=== PATIENT | male | born 1950 | race Caucasian/White ===

== ENCOUNTER → 2016-11-15 | Outpatient (CLI) | payer MEDICARE, OTHER ==
[2016-11-15 12:08] LABS: MEAN CORPUSCULAR HEMOGLOBIN 27.7 pg (27.0-33.0); MEAN CORPUSCULAR HGB CONC 31.2 g/dl (32.0-36.5); MEAN CORPUSCULAR VOLUME 88.8 fl (80.0-96.0); RED CELL DISTRIBUTION WIDTH 15.2 % (11.5-14.5)
== END ==
LOC: M SMT 09:17
PROVIDERS: ATTEND Physician Assistant
DX: I48.3 Typical atrial flutter (principal); Z51.81 Encounter for therapeutic drug level monitoring; Z79.01 Long term (current) use of anticoagulants

== ENCOUNTER → 2016-11-15 | Outpatient (CLI) | payer MEDICARE, OTHER ==
[2016-11-15 12:31] LABS: CALCIUM LEVEL 9.5 MG/DL (8.8-10.2); CREATININE FOR GFR 1.29 MG/DL (0.70-1.30); FREE T4 1.58 NG/DL (0.76-1.46); GLOMERULAR FILTRATION RATE 59.1 (>49); POTASSIUM SERUM 4.8 MEQ/L (3.5-5.1)
== END ==
LOC: M SMT 09:14
PROVIDERS: ATTEND Physician Assistant Medical
DX: E11.40 Type 2 diabetes mellitus with diabetic neuropathy, unspecified (principal); E03.9 Hypothyroidism, unspecified; E78.2 Mixed hyperlipidemia; I48.3 Typical atrial flutter; Z51.81 Encounter for therapeutic drug level monitoring; Z79.01 Long term (current) use of anticoagulants

== ENCOUNTER 2017-04-27 13:21 | Emergency (ER) | payer MEDICARE, OTHER ==
[~2017-04-27] VITALS: Ht 177.8 cm; Wt 96.8 kg
[2017-04-27] MEDS ORDERED: METF500T4 (13:38)
[2017-04-27] MEDS ORDERED: SPIR1CAP (13:38)
[2017-04-27] MEDS ORDERED: FURO40TA2 (13:38)
[2017-04-27] MEDS ORDERED: ASPI81TA85 PO (13:38)
[2017-04-27] MEDS ORDERED: ADVA115A (13:38)
[2017-04-27] MEDS ORDERED: DIGO0.25 (13:38)
[2017-04-27] MEDS ORDERED: VITA1CAP40 (13:38)
[2017-04-27] MEDS ORDERED: LEVO175T2 (13:38)
[2017-04-27] MEDS ORDERED: NITR4TASL (13:38)
[2017-04-27] MEDS ORDERED: GABA-282 (13:38)
[2017-04-27] MEDS ORDERED: ALTA1CAP4 PO (13:38)
[2017-04-27] MEDS ORDERED: ELIQ5TAB (13:38)
[2017-04-27] MEDS ORDERED: ATEN100T (13:38)
[2017-04-27] MEDS ORDERED: oxygen (13:40)
[2017-04-27] MEDS ORDERED: CO Q100C10 PO (13:40)
[2017-04-27] MEDS ORDERED: VITATAB11 PO (13:40)
[2017-04-27] MEDS ORDERED: NS 500 ML IV ONE (15:00)
[2017-04-27 15:01] LABS: BASO % 0.4 % (0.0-1.0); EOS # 0.1 K/mm3 (0.0-0.50); EOS % 1.3 % (0.0-3.0); LARGE UNSTAINED CELL # 0.1 K/mm3 (0.0-0.4); LARGE UNSTAINED CELL % 1.2 % (0.0-4.0); LYMPH # 1.6 K/mm3 (1.5-4.5); LYMPH % 16.1 % (24.0-44.0); MEAN CORPUSCULAR HEMOGLOBIN 30.4 pg (27.0-33.0); MEAN CORPUSCULAR HGB CONC 34.2 g/dl (32.0-36.5); MONO # 0.5 K/mm3 (0.0-0.8); NEUTROPHILS # 6.9 K/mm3 (1.8-7.7); PLATELET COUNT, AUTOMATED 219 k/mm3 (150-450)
[2017-04-27 15:14] LABS: CALCIUM LEVEL 9.3 MG/DL (8.8-10.2); CREATININE FOR GFR 1.4 MG/DL (0.70-1.30); GLOMERULAR FILTRATION RATE 53.8 (>49); POTASSIUM SERUM 4.6 MEQ/L (3.5-5.1)
[2017-04-27] MEDS ORDERED: HumuLIN R (REGULAR) INSULIN (NovoLIN R) **100U/ML** PER UNIT IV ONE (15:30)
[2017-04-27 16:44] VITALS: BP 112/56
[2017-04-27 17:16] LABS: ALBUMIN 3.6 GM/DL (3.2-5.2); ALBUMIN/GLOBULIN RATIO 0.92 (1.00-1.93); BILIRUBIN,DIRECT 0.2 MG/DL (0.0-0.2); BILIRUBIN,TOTAL 1.3 MG/DL (0.2-1.0); TOTAL PROTEIN 7.5 GM/DL (6.4-8.2)
== END 2017-04-27 17:17 | disposition home or self-care (01) ==
LOC: M ED 13:21
DX: R73.9 Hyperglycemia, unspecified (principal); R73.03 Prediabetes; I13.10 Hypertensive heart and chronic kidney disease without heart failure, with stage 1 through stage 4 chronic kidney disease, or unspecified chronic kidney disease; N18.9 Chronic kidney disease, unspecified; J44.9 Chronic obstructive pulmonary disease, unspecified; I25.2 Old myocardial infarction; I35.9 Nonrheumatic aortic valve disorder, unspecified; Z87.891 Personal history of nicotine dependence; Z99.81 Dependence on supplemental oxygen; Z79.899 Other long term (current) drug therapy; Z79.84 Long term (current) use of oral hypoglycemic drugs; Z79.01 Long term (current) use of anticoagulants; Z79.82 Long term (current) use of aspirin

== ENCOUNTER → 2017-05-09 | Outpatient (REF) | payer MEDICARE, OTHER ==
[~2017-05-09] MED LIST: ADVA115A; ALTA1CAP4 PO; ASPI81TA85 PO; ATEN100T; CO Q100C10 PO; DIGO0.25; ELIQ5TAB; FURO40TA2; GABA-282; LEVO175T2; METF500T4; NITR4TASL; SPIR1CAP; VITA1CAP40; VITATAB11 PO; oxygen
[2017-05-09 13:20] LABS: ANION GAP 8 MEQ/L (8-16); BLOOD UREA NITROGEN 21 MG/DL (7-18); CALCIUM LEVEL 9.6 MG/DL (8.8-10.2); CARBON DIOXIDE LEVEL 33 MEQ/L (21-32); CHLORIDE LEVEL 100 MEQ/L (98-107); CHOLESTEROL LEVEL 181 MG/DL (<200); CREATININE FOR GFR 1.13 MG/DL (0.70-1.30); FREE T4 1.45 NG/DL (0.76-1.46); GLOMERULAR FILTRATION RATE > 60.0 (>49); GLUCOSE, FASTING 259 MG/DL (80-110); POTASSIUM SERUM 4.2 MEQ/L (3.5-5.1); SODIUM LEVEL 141 MEQ/L (136-145); TRIGLYCERIDES LEVEL 327 MG/DL (<150)
== END ==
LOC: M LABDRWAD 12:05
PROVIDERS: ATTEND Physician Assistant Medical
DX: E03.8 Other specified hypothyroidism (principal); E78.2 Mixed hyperlipidemia; E11.40 Type 2 diabetes mellitus with diabetic neuropathy, unspecified

== ENCOUNTER → 2017-05-12 | Outpatient (REF) | payer MEDICARE, OTHER | LOC: M LABDRAW1 13:55 → M LABDRWAD 13:55 | PROVIDERS: ATTEND Physician Assistant Medical | DX: E11.40 Type 2 diabetes mellitus with diabetic neuropathy, unspecified (principal); E03.8 Other specified hypothyroidism; E55.9 Vitamin D deficiency, unspecified; E78.2 Mixed hyperlipidemia ==

== ENCOUNTER → 2017-07-08 | Outpatient (REF) | payer MEDICARE, OTHER ==
[2017-07-08 13:30] LABS: ANION GAP 9 MEQ/L (8-16); BLOOD UREA NITROGEN 21 MG/DL (7-18); CALCIUM LEVEL 8.6 MG/DL (8.8-10.2); CARBON DIOXIDE LEVEL 31 MEQ/L (21-32); CHLORIDE LEVEL 105 MEQ/L (98-107); CREATININE FOR GFR 1.09 MG/DL (0.70-1.30); GLOMERULAR FILTRATION RATE > 60.0 (>49); GLUCOSE, FASTING 135 MG/DL (80-110); POTASSIUM SERUM 4.3 MEQ/L (3.5-5.1); SODIUM LEVEL 145 MEQ/L (136-145)
== END ==
LOC: M LABSMT 12:30
PROVIDERS: ATTEND Physician Assistant Medical
DX: E11.65 Type 2 diabetes mellitus with hyperglycemia (principal)

== ENCOUNTER → 2017-10-08 | Outpatient (REF) | payer OTHER ==
[2017-10-08 13:30] LABS: ANION GAP 7 MEQ/L (8-16); BLOOD UREA NITROGEN 21 MG/DL (7-18); CALCIUM LEVEL 8.8 MG/DL (8.8-10.2); CARBON DIOXIDE LEVEL 34 MEQ/L (21-32); CHLORIDE LEVEL 103 MEQ/L (98-107); CHOLESTEROL LEVEL 155 MG/DL (<200); CREATININE FOR GFR 0.96 MG/DL (0.70-1.30); FREE T4 1.41 NG/DL (0.76-1.46); GLOMERULAR FILTRATION RATE > 60.0 (>49); GLUCOSE, FASTING 133 MG/DL (80-110); POTASSIUM SERUM 4.2 MEQ/L (3.5-5.1); SODIUM LEVEL 144 MEQ/L (136-145); TRIGLYCERIDES LEVEL 197 MG/DL (<150)
== END ==
LOC: M LABDRWAD 12:13 → M LAB REF 12:13
PROVIDERS: ATTEND Physician Assistant Medical
DX: Z00.00 Encounter for general adult medical examination without abnormal findings (principal); E11.65 Type 2 diabetes mellitus with hyperglycemia; E03.9 Hypothyroidism, unspecified

== ENCOUNTER → 2017-12-16 | Outpatient (REF) | payer OTHER ==
[2017-12-16 21:03] LABS: FREE T4 1.23 NG/DL (0.76-1.46); THYROID STIMULATING HORMONE 0.275 uIU/ML (0.358-3.740)
== END ==
LOC: M LABDRWAD 19:33
DX: E03.8 Other specified hypothyroidism (principal)
CPT/HCPCS: 84443

== ENCOUNTER → 2018-01-15 | Outpatient (CLI) | payer MEDICARE, OTHER | LOC: M ADAMS 08:36 | DX: J44.9 Chronic obstructive pulmonary disease, unspecified (principal) | CPT/HCPCS: 71046 ==

== ENCOUNTER → 2018-03-31 | Outpatient (REF) | payer OTHER ==
[2018-03-31 13:20] LABS: ESTIMATED AVERAGE GLUCOSE 166 MG/DL (60-110); HEMOGLOBIN A1c 7.4 %
[2018-03-31 13:28] LABS: ANION GAP 9 MEQ/L (8-16); BLOOD UREA NITROGEN 23 MG/DL (7-18); CALCIUM LEVEL 9.2 MG/DL (8.8-10.2); CARBON DIOXIDE LEVEL 31 MEQ/L (21-32); CHLORIDE LEVEL 103 MEQ/L (98-107); CHOLESTEROL LEVEL 157 MG/DL (<200); CHOLESTEROL RISK RATIO 5.413 (<5); CREATININE FOR GFR 1.02 MG/DL (0.70-1.30); GLOMERULAR FILTRATION RATE > 60.0 (>49); GLUCOSE, FASTING 175 MG/DL (70-100); HDL CHOLESTEROL 29 MG/DL (>40); NON-HDL-C 128 MG/DL; POTASSIUM SERUM 4.2 MEQ/L (3.5-5.1); SODIUM LEVEL 143 MEQ/L (136-145); THYROID STIMULATING HORMONE 0.339 uIU/ML (0.358-3.740); TRIGLYCERIDES LEVEL 240 MG/DL (<150)
[2018-03-31 14:02] LABS: CREATININE, URINE 24.4 MG/DL; MALB URINE SIEMENS 28.1 MG/L; MAU/CREAT RATIO 115.1 MCG/MG (0.0-30.0)
== END ==
LOC: M LABDRWAD 12:38
DX: E11.65 Type 2 diabetes mellitus with hyperglycemia (principal); E03.8 Other specified hypothyroidism; E78.2 Mixed hyperlipidemia

== ENCOUNTER → 2018-07-08 | Outpatient (REF) | payer OTHER ==
[2018-07-08 14:07] LABS: FREE T4 1.09 NG/DL (0.76-1.46)
== END ==
LOC: M LABDRWAD 12:35
DX: E03.8 Other specified hypothyroidism (principal)

== ENCOUNTER → 2019-03-22 | Outpatient (REF) | payer MEDICARE, OTHER ==
[~2019-03-22] MED LIST changes: -GABA-282; +GABA-843; -VITA1CAP40; +VITA50005
[2019-03-22 13:28] LABS: ALBUMIN 3.4 GM/DL (3.2-5.2); ALT/SGPT 36 U/L (12-78); BILIRUBIN,TOTAL 1.2 MG/DL (0.2-1.0); BLOOD UREA NITROGEN 20 MG/DL (7-18); CALCIUM LEVEL 8.8 MG/DL (8.8-10.2); CARBON DIOXIDE LEVEL 33 MEQ/L (21-32); CHLORIDE LEVEL 102 MEQ/L (98-107); CHOLESTEROL LEVEL 200 MG/DL (<200); CHOLESTEROL RISK RATIO 6.451 (<5); CREATININE FOR GFR 1.01 MG/DL (0.70-1.30); GLOMERULAR FILTRATION RATE > 60.0 (>49); GLUCOSE, FASTING 170 MG/DL (70-100); HDL CHOLESTEROL 31 MG/DL (>40); LDL CHOLESTEROL 131 MG/DL (<100); NON-HDL-C 169 MG/DL; SODIUM LEVEL 142 MEQ/L (136-145); TOTAL PROTEIN 7.1 GM/DL (6.4-8.2); TRIGLYCERIDES LEVEL 192 MG/DL (<150)
[2019-03-22 13:34] LABS: TOTAL 25(OH) VITAMIN D 38.7 NG/ML (30.0-100.0)
[2019-03-22 15:10] LABS: HEMOGLOBIN A1c 7.7 %
== END ==
LOC: M LABDRWAD 12:41
PROVIDERS: ATTEND Physician Assistant Medical
DX: E11.65 Type 2 diabetes mellitus with hyperglycemia (principal); I10 Essential (primary) hypertension; E55.9 Vitamin D deficiency, unspecified; E78.2 Mixed hyperlipidemia

== ENCOUNTER → 2019-06-24 | Outpatient (REF) | payer MEDICARE, OTHER ==
[~2019-06-24] MED LIST changes: +METF-791; -METF500T4
[2019-06-24 13:15] LABS: BLOOD UREA NITROGEN 26 MG/DL (7-18); CALCIUM LEVEL 10.1 MG/DL (8.8-10.2); CARBON DIOXIDE LEVEL 35 MEQ/L (21-32); CHLORIDE LEVEL 103 MEQ/L (98-107); CREATININE FOR GFR 1.03 MG/DL (0.70-1.30); GLOMERULAR FILTRATION RATE > 60.0 (>42); GLUCOSE, FASTING 130 MG/DL (70-100); POTASSIUM SERUM 4.2 MEQ/L (3.5-5.1); SODIUM LEVEL 143 MEQ/L (136-145); THYROID STIMULATING HORMONE 0.808 uIU/ML (0.358-3.740)
[2019-06-24 13:26] LABS: HEMOGLOBIN A1c 6.5 %
[2019-06-24 13:46] LABS: MALB URINE SIEMENS 65.4 MG/L; MAU/CREAT RATIO 52.3 MCG/MG (0.0-30.0)
== END ==
LOC: M LAB REF 12:15
PROVIDERS: ATTEND Physician Assistant Medical
DX: E11.65 Type 2 diabetes mellitus with hyperglycemia (principal); E03.8 Other specified hypothyroidism

== ENCOUNTER → 2019-10-09 | Outpatient (CLI) | payer MEDICARE, OTHER ==
--- NOTE | 2019-10-09 12:05 | REP ---
REASON: History of emphysema. COMPARISON: 01/15/2018, the latest prior with other older priors also reviewed. Since the latest prior examination bibasilar opacities have developed. The interstitial markings are generally increased when compared to the prior exam. There is cardiomegaly. There is thickening of the major fissure. There is no change in the osseous structures. IMPRESSION: Bibasilar findings and increased interstitial markings with cardiomegaly. I can not rule out the possibility of early interstitial edema superimposed upon chronic change with evidence to suggest bibasilar subsegmental atelectatic change and or even bibasilar pneumonia. This should be correlated clinically with appropriate followup. Electronically Signed by Maury Terry DO 10/09/2019 12:17 P
== END ==
LOC: M ADAMS 09:05
PROVIDERS: ATTEND Internal Medicine Pulmonary Disease
DX: R91.8 Other nonspecific abnormal finding of lung field (principal); J43.1 Panlobular emphysema; J96.11 Chronic respiratory failure with hypoxia

== ENCOUNTER 2020-03-09 16:34 | Inpatient (IN) | payer MEDICARE, OTHER ==
[~2020-03-09] VITALS: Ht 177.8 cm; Wt 98.5 kg
[~2020-03-09 16:34] MED LIST changes: -ADVA115A; +ADVA115A INH; -ATEN100T; +ATEN100T PO; -ELIQ5TAB; +ELIQ5TAB PO; -METF-791; +METF-838; -NITR4TASL; +NITR4TASL SL; -SPIR1CAP; +SPIR1CAP INH
[2020-03-09] MEDS ORDERED: FURO40TA2 PO ×3 (17:07→19:44)
[2020-03-09] MEDS ORDERED: METF10004 PO (17:07)
[2020-03-09] MEDS ORDERED: DIGO0.123 PO (17:07)
[2020-03-09] MEDS ORDERED: SITA50TAB PO (17:12)
[2020-03-09] MEDS ORDERED: LEVO137T2 PO (17:12)
[2020-03-09] MEDS ORDERED: ALBU83IN INH (17:12)
[2020-03-09] MEDS ORDERED: GABA600T4 PO (17:12)
[2020-03-09] MEDS ORDERED: ATOR80TA59 PO (17:12)
[2020-03-09] MEDS ORDERED: GABA-843 PO ×2 (17:12→19:41)
[2020-03-09 17:41] LABS: BASO # 0.1 10^3/uL (0.0-0.2); BASO % 0.8 % (0.0-1.0); EOS % 0.5 % (0.0-3.0); HEMATOCRIT 28.5 % (42.0-52.0); HEMOGLOBIN 7.6 g/dl (13.5-17.5); LYMPH # 0.7 10^3/uL (1.5-5.0); LYMPH % 8.7 % (24.0-44.0); MEAN CORPUSCULAR HEMOGLOBIN 19.6 pg (27.0-33.0); MEAN CORPUSCULAR HGB CONC 26.7 g/dl (32.0-36.5); MEAN CORPUSCULAR VOLUME 73.5 fl (80.0-96.0); NEUTROPHILS # 6.2 10^3/uL (1.5-8.5); NEUTROPHILS % 77.6 % (36.0-66.0); PLATELET COUNT, AUTOMATED 394 10^3/uL (150-450); RED BLOOD COUNT 3.88 10^6/uL (4.30-6.10); WHITE BLOOD COUNT 7.9 10^3/uL (4.0-10.0)
--- NOTE | 2020-03-09 17:59 | REP ---
REASON FOR EXAM: Cough and dyspnea. COMPARISON: Multiple, the latest 09/04/2016. The technique utilized in obtaining the radiograph has magnified the cardiac silhouette and accentuated the interstitial markings. There are bibasilar opacities which have increased from the prior exam, more so on the right than left where a small pleural effusion is suspected. There is evidence of a hiatal hernia or other sort of retrocardiac density, difficult to evaluate with a single frontal portable view of the chest. The interstitial markings are diffusely increased, and there is evidence of pulmonary vascular redistribution, remembering this is a portable exam. There is cardiomegaly. There is no change in the osseous structures. IMPRESSION: Cardiomegaly and evidence of interstitial edema accentuated by technique. A small pleural effusion on the right cannot be ruled out. There are other basilar opacities which have increased from the prior exam. Basilar pneumonia cannot be ruled out superimposed upon chronic changes. Retrocardiac density, uncertain etiology. PA and lateral views of the chest should be considered. Electronically Signed by Maury Terry DO 03/09/2020 07:58 P
[2020-03-09 18:16] LABS: ALBUMIN 2.8 GM/DL (3.2-5.2); ALT/SGPT 67 U/L (12-78); BILIRUBIN,DIRECT 0.5 MG/DL (0.0-0.2); BILIRUBIN,TOTAL 1.3 MG/DL (0.2-1.0); BLOOD UREA NITROGEN 35 MG/DL (7-18); CALCIUM LEVEL 8.8 MG/DL (8.8-10.2); CARBON DIOXIDE LEVEL 36 MEQ/L (21-32); CHLORIDE LEVEL 100 MEQ/L (98-107); CK-MB VALUE MASS 2.8 NG/ML (<3.6); CPK CREATINE PHOSPHOKINASE 94 U/L (39-308); CREATININE FOR GFR 1.22 MG/DL (0.70-1.30); GLOMERULAR FILTRATION RATE > 60.0 (>42); GLUCOSE, FASTING 109 MG/DL (70-100); MB/CK RELATIVE INDEX 2.98 (< OR =4); NT-PRO BNP 5255 PG/ML (<125); POTASSIUM SERUM 3.9 MEQ/L (3.5-5.1); SODIUM LEVEL 142 MEQ/L (136-145); TOTAL PROTEIN 6.9 GM/DL (6.4-8.2); TROPONIN I 0.02 NG/ML (< 0.10)
--- NOTE | 2020-03-09 19:36 | HPEPDOC ---
[facility] Medical History & Physical Date of Admission March 09, 2020 Date of Service: March 09, 2020 Primary Care Physician: Salina Barajas Attending Physician: Roz Freeman MD History and Physical CHIEF COMPLAINT: Worsening lower ext swelling HISTORY OF PRESENT ILLNESS: Patient is a 69 y/o M with PMH of COPD on home O2 (2 L NC at rest, 5 L NC with activity), CHF type unknown, HTN, DM type II, hypothyroidism, HLD, atrial fibrillation on eliquis, CAD s/p 2 stent placement, peripheral neuropathy who presented to [facility] ED from PCP office due to worsening lower swelling, nose bleed. As per patient, he has gained 5 pounds over the past several days, has had increased shortness of breath, significant lower extremity swelling with the formation of large fluid blisters which have been draining clear liquid. 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 Normally he can have a productive cough of clear sputum at baseline, especially after nebulizer treatments but no change in this matter. Denies chest pain, fevers, chills, recent hospitalizations, diarrhea, N/V, abdominal pain. Patient uses O2 ATC at 2 L NC, with activity it is increased to 5 LNC. Other associated symptoms include loss of appetite, lack of energy, lightheadedness and dizziness today with activity. Today he went to his PCP's office and they found the findings above. They also said he had increased crackles in his lungs and that he was "retaining fluid". Patient also had an episode of epistaxis, they believed to be due to increased O2 supply from NC. He was then sent to the ER for further evaluation. In the ER, VS showed BP 159-180/67-74, 81 % on 5 L NC, pulse 80-122, afebrile. Placed on venturi mask 28% FiO2 28 saturated in 90's. Patient was agitated and had epistaxis with active bleeding from anterior nose, clip was placed and bleed ing stopped. Breathing slowed down. CT chest showed bilateral pleural effusions with possible loculation on the left although there is no significant consolidation in the left lung, large right pleural effusion with adjacent consolidation the right lower lobe which may be due to compressive atelectasis, pneumonia, pulmonary embolic disease or carcinoma. Panlobular emphysema. Probable remote dissection of the distal thoracic and proximal abdominal aorta was also noted. Patient was able to speak in full sentences and did not appear in acute distress when evaluated. BNP >5000, H/H was 7.6/28.5- unknown what baseline is, trop neg, ECG showed no change from prior on file. Right leg > L, doppler ordered. Patient admitted for acute CHF exacerbation, symptomatic anemia. REVIEW OF SYSTEMS: CONSTITUTIONAL: Denies unexplained weight loss, fever, night sweats EYES: Denies eye drainage, eye pain, visual changes, dry/irritated eye EARS, NOSE, MOUTH, THROAT: Denies difficulty hearing, ringing in ears, mouth sores, loose teeth, sore throat, facial numbness or pain NECK: Denies swollen glands CARDIOVASCULAR: Denies racing heart RESPIRATORY: Deniesnight sweats, wheezing, sputum production, coughing up blood GASTROINTESTINAL: Denies abdominal pain, constipation, bloody stool, diarrhea, heartburn, nausea, vomiting GENITOURINARY: Denies painful urination, bloody urine, frequent urination, urge ncy, leaking urine, impotence MUSCULOSKELETAL: Denies joint pain, muscle pain, leg swelling INTEGUMENTARY: Denies rash, itching, hair loss or increase, breast changes. NEUROLOGICAL: Denies headaches, numbness or tingling PSYCHIATRIC: Denies depression, anxiety, recurrent bad thoughts, mood swings, hallucinations PAST MEDICAL HISTORY: 1. COPD 2. CHF 3. HTN 4. DM type II 5. Hypothyroidism 6. HLD 7. Atrial fibrillation on eliquis 8. CAD s/p 2 stent placement 9. Peripheral neuropathy 10. 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 Cardiac stent placements FAMILY HISTORY: Father: embolism. at 58 y/o Mother: Cancer-type unknown. at 78 y/o Siblings: Brother #1- colon cancer. Alive. Brother #2- cancer, type unknown. at 60 y/o. SOCIAL HISTORY: Prior smoker, quit 15 years. 2 PPD of cigarettes for 35 years. Social alcohol history, denies illicit drug use. [place] in the local area with his in a house. PCP- Salina Tello, Trolley Car Overhauler- Dr. Moffett, Hat Copyist- Dr. Summers. DNR/DNI, HCP- his . Document are with her. ALLERGIES: Please see below. HOME MEDICATIONS: Please see below. PHYSICAL EXAMINATION: CONSTITUTIONAL: No acute distress, resting comfortably, AAO x 3 EYES: PERRLA, EOM intact, corrective lenses in place HENT, MOUTH: Normocephalic, atraumatic, moist mucous membranes, nasal clip in place NECK: SUPPLE, no JVD, no lymphadenopathy, no carotid bruit CV: Regular rate and rhythm, S1S2 normal, no murmurs/rubs/gallops RESPIRATORY: crackles in right posterior lung base, no rales/rhonchi/wheezes GI: BS positive in 4 quadrants, soft, nontender, nondistended, no rebound or guarding, no organomegaly : Deferred MUSCULOSKELETAL: Normal ROM. No cyanosis, clubbing, joint deformity. Extremity edema +3 bilaterally, R>L. INTEGUMENTARY: Intact, no rashes, Fluid blisters bilateral lower ext, multiple scabs from ones that have popped and are healing. No open ulcers. NEUROLOGIC: Cranial Nerves II-XII are intact, no focal deficits PSYCHIATRIC: Mood and affect are normal LABORATORY DATA: Please see below IMAGING: CT chest: 1. There are bilateral pleural effusions with possible loculation on the left although there is no significant consolidation in the left lung. 2. There is a large right pleural effusion with adjacent consolidation the right lower lobe which may be due to compressive atelectasis, pneumonia, pulmonary embolic disease or carcinoma. 3. Panlobular emphysema. 4. Probable remote dissection of the distal thoracic and proximal abdominal aorta. ASSESSMENT: 69 y/o M admitted for acute CHF exacerbation, symptomatic anemia. PLAN: 1. Acute CHF exacerbation, type unknown. Bilateral pleural effusions, BNP 5255. Follows with Dr. Moffett, no echo on file. Started on lasix 60 mg IV BID, ACEi, BB BID. Monitor I&O's closely, daily wt, 2 gm sodium diet. Echo ordered. 2. Bilateral pleural effusions likely 2/2 to problem #1. L>R with possible loculation not being able to ruled out. C/w treatment above, may require drainage. 3. Consolidation of right lower lung lobe , ? compressive atelectasis, pneumonia, pulmonary embolic disease or carcinoma. Has been on eliquis, not currently tachycardic, Will start on ceftriaxone, azithromycin, incentive spirometer. Consider CTA chest. 4. Symptomatic anemia. F/u anemia studies. Difficult to say if this is acute (dilutional vs. GI bleed, unlikely 2/2 to epistaxis above as he did not bleed that much) vs. chronic. No prior H/H on file. Occult blood ordered. Type and screen, repeat CBC 23:00. If worse H/H or CBC unchanged at 23:00, consider transfusion if patient still symptomatic. Perhaps diuresis will improve H/H also. 5. Epistaxis. Resolved with clip placement. Holding eliquis until AM with anemia and will let AM team decide when to restart. 6. HTN, uncontrolled. Pt had not had PM meds and also is very overloaded. C/w home meds in addition to BID lasix. 5. DM type II. ISS, consistent carb diet, AC/HS blood sugar checks. 6. Hypothyroidism. C/w levothyroxine. 7. COPD. No currently in exacerbation. C/w duoneb ATC, spiriva, albuterol PRN. 8. Aortic dissection of the distal thoracic and proximal abdominal aorta, chronic. C/w strict BP control, watched as o/p closely. 9. HLD. Statin. 10. CAD s/p stents placed. Denies chest pain, trop neg. Holding ASA currently, c/w BB, statin, nitro PRN. 11. Atrial fibrillation, chronic. Holding eliquis, can likely be restarted in AM if no more bleeding and occult neg. C/w BB. 12. Peripheral neuropathy. C/w gabapentin. 13. DVT px. SCDs, holding eliquis. DISPOSITION: Admitted under inpatient status. Plan is discharge home when medically improved. Vital Signs Vital Signs Date Time Temp Pulse Resp B/P (MAP) Pulse Ox O2 Delivery O2 Flow Rate FiO2 03/09/20 19:00 80 159/70 (99) 95 Venturi Mask 28 03/09/20 17:40 5.0 03/09/20 16:35 99.6 32 Laboratory Data Labs 24H Laboratory Tests 2 03/09/20 17:21: Immature Granulocyte % (Auto) 0.4, Neutrophils (%) (Auto) 77.6H, Lymphocytes (%) (Auto) 8.7L, Monocytes (%) (Auto) 12.0H, Eosinophils (%) (Auto) 0.5, Basophils (%) (Auto) 0.8, Neutrophils # (Auto) 6.2, Lymphocytes # (Auto) 0.7L, Monocytes # (Auto) 1.0H, Eosinophils # (Auto) 0.0, Basophils # (Auto) 0.1, Nucleated Red Blood Cells % (auto) 0.0, Anion Gap 6L, Glomerular Filtration Rate > 60.0, Lactic Acid Level 1.6, Calcium Level 8.8, Total Bilirubin 1.3H, Direct Bilirubin 0.5H, Aspartate Amino Transf (AST/SGOT) 40H, Alanine Aminotransferase (ALT/SGPT) 67, Alkaline Phosphatase 189H, Total Creatine Kinase 94, Creatine Kinase MB 2.8, Creatine Kinase MB Relative Index 2.98, Troponin I 0.02, TT-Poe-Q-Type Natriuretic Peptide 5255H, Total Protein 6.9, Albumin 2.8L, Albumin/Globulin Ratio 0.7, Thyroid Stimulating Hormone (TSH) 3.190 CBC/BMP Laboratory Tests 03/09/20 17:21 Microbiology Microbiology 03/09/20 Blood Culture, Received Pending 03/09/20 Blood Culture, Received Pending Home Medications Scheduled Apixaban (Eliquis) 5 Mg Tab, 5 MG PO BID Aspirin (Aspir 81) 81 Mg Tab, 81 MG PO DAILY Atenolol (Atenolol) 100 Mg Tab, 100 MG PO BID Atorvastatin Calcium (Atorvastatin Calcium) 80 Mg Tablet, 80 MG PO QPM Digoxin (Digoxin) 125 Mcg Tablet, 125 MCG PO DAILY Fluticasone Propion/Salmeterol (Advair Hfa 115-21 Mcg Inhaler) 1 Aer Aer, 2 PUFFS INH BID Furosemide (Furosemide) 40 Mg Tablet, 60 TAB PO QAM NEW DOSE, STARTED 03/07/20 Furosemide (Furosemide) 40 Mg Tablet, 40 MG PO QPM NEW DOSE, STARTED 03/07/20 Gabapentin (Gabapentin) 300 Mg Capsule, 600 MG PO QAM Gabapentin (Gabapentin) 300 Mg Capsule, 900 MG PO QPM Levothyroxine Sodium (Levothyroxine Sodium) 137 Mcg Tablet, 137 MCG PO QAM Metformin HCl (Metformin HCl) 1,000 Mg Tablet, 1,000 MG PO BID Ramipril (Altace) 10 Mg Cap, 10 MG PO DAILY Sitagliptin (Januvia) 50 Mg Tablet, 50 MG PO DAILY Tiotropium Clawson (Spiriva) 18 Mcg Cap, 18 MCG INH DAILY Vitamin B Complex/Folic Acid (B-Complex Tablet) 0.4 Mg Tablet, 1 TAB PO DAILY Scheduled PRN Albuterol Sulf (Albuterol Sulfate) 2.5 Mg/3 Ml Vial.neb, 2.5 MG INH Q6H PRN for SHORTNESS OF BREATH Nitroglycerin (Nitrostat) 0.4 Mg Subl, 0.4 MG SL Q5MP PRN for CHEST PAIN Allergies Coded Allergies: No Known Allergies (Unverified , 04/27/17) A-FIB/CHADSVASC A-FIB History Current/History of A-Fib/PAF?: Yes Current PO Anticoag Therapy: Yes Age/Risk Factor Scoring CHADSVASC: CHADSVASC Response (Comments) Value Age Risk Factor Age 65-74 years old 1 Gender Risk Factor Male 0 Hx of CHF Yes 1 Hx of HTN Yes 1 Hx of Stroke/TIA/or VTE No 0 Hx of Diabetes Yes 1 Hx of Vascular Disease Yes 1 Total 5 Treatment Treatment ordered: Apixaban Reason Anticoagulant not given: Current bleeding (bleeding ) Roz Freeman MD March 09, 2020 19:35
[2020-03-09] MEDS ORDERED: B-COTAB10 PO (19:41)
[2020-03-09] MEDS: IPRATROPIUM 0.5MG/ALBUTEROL 2.5MG INH SOL UD 3ML (DUONEB)(J7620) NEB SCH (20:00)
--- NOTE | 2020-03-09 20:01 | REPVR ---
PROCEDURE INFORMATION: Exam: CT Chest Without Contrast Exam date and time: 03/09/2020 7:14 PM Age: 69 years old Clinical indication: Abnormal findings; Abnormal radiologic exam of lung or chest; Additional info: ? Pn on cxr TECHNIQUE: Imaging protocol: Computed tomography of the chest without contrast. 3D rendering: MIP and/or 3D reconstructed images were created by the technologist. Radiation optimization: All CT scans at this facility use at least one of these dose optimization techniques: automated exposure control; mA and/or kV adjustment per patient size (includes targeted exams where dose is matched to clinical indication); or iterative reconstruction. COMPARISON: SC PORTABLE CHEST X-RAY 03/09/2020 5:04 PM FINDINGS: Lungs: Panlobular emphysema. Subsegmental atelectasis along the base of the left upper lobe versus pleural thickening along the fissure. There is consolidation with air bronchogram in the right lower lobe. Pleural space: Moderate right pleural effusion and smaller left pleural effusion which may be loculated posterior medially. Fluid is also seen within the fissures. Heart: No significant cardiomegaly or pericardial effusion. There is mitral annular calcification. Aorta: In there is no aneurysmal dilatation of thoracic aorta. There is extensive atherosclerotic calcification. There may have been a prior dissection of the distal descending and proximal abdominal aorta. Lymph nodes: Multiple subcentimeter lymph nodes are seen within the mediastinum. The long are not well assessed on this noncontrast study. Calcified pulmonary granulomas. Bones/joints: Skeletal degeneration. Soft tissues: Unremarkable. IMPRESSION: 1. There are bilateral pleural effusions with possible loculation on the left although there is no significant consolidation in the left lung. 2. There is a large right pleural effusion with adjacent consolidation the right lower lobe which may be due to compressive atelectasis, pneumonia, pulmonary embolic disease or carcinoma. 3. Panlobular emphysema. 4. Probable remote dissection of the distal thoracic and proximal abdominal aorta. Electronically signed by: Jaimee Rodriguez On 03/09/2020 20:01:02 PM
[2020-03-09] MEDS ORDERED: ALBUTEROL SULFATE 2.5 MG/0.5 ML INH NEB SOLN INH PRN (20:15)
[2020-03-09] MEDS ORDERED: NITROGLYCERIN 0.4 MG SUBL TABLET SL PRN (20:15)
[2020-03-09 20:34] LABS: FERRITIN 22 NG/ML (26-388); IRON (FE) 18 UG/DL (65-175); PERCENT SATURATION 4.7 % (19.7-50.0); TOTAL IRON BINDING CAPACITY 382 UG/DL (250-450)
[2020-03-09] MEDS: HumaLOG INSULIN (NovoLOG) PER UNIT SC SCH (21:00)
[2020-03-09] MEDS: ADVAIR HFA 115/21MCG INHALER INH SCH (21:00)
--- NOTE | 2020-03-09 21:32 | ECGEPIP ---
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
[2020-03-09] MEDS: FUROSEMIDE 100MG/10ML VIAL (J1940) IV SCH (21:39)
[2020-03-09] MEDS: GABAPENTIN 300 MG CAP PO SCH (21:39)
[2020-03-09] MEDS: atenoloL 50 MG TAB PO SCH (21:40)
[2020-03-09] MEDS: ATORVASTATIN 20 MG TAB PO SCH (21:41)
[2020-03-09 22:00] VITALS: BP 129/71
[2020-03-09] MEDS ORDERED: GLUCOSE 4GM CHEW TABLET PO PRN (22:00)
[2020-03-09] MEDS ORDERED: DEXTROSE 50% 50 ML SYRINGE IV PRN (22:00)
[2020-03-09] MEDS ORDERED: GLUCAGON INJ 1MG VIAL SC PRN (22:00)
--- NOTE | 2020-03-09 22:35 | REPVR ---
PROCEDURE INFORMATION: Exam: US Duplex Lower Extremity Veins, Bilateral Exam date and time: 03/09/2020 10:18 PM Age: 69 years old Clinical indication: Pain; Leg, lower; Bilateral; Additional info: Right lower ext > left leg, R/O dvt TECHNIQUE: Imaging protocol: Real-time duplex ultrasound of the extremities with 2-D rodriguez scale, color Doppler flow and spectral waveform analysis with image documentation. Complete exam focused on the bilateral lower extremity veins. COMPARISON: No relevant prior studies available. FINDINGS: Right deep veins: Unremarkable. The common femoral, femoral, proximal profunda femoral and popliteal veins are patent without thrombus. Normal Doppler waveforms. Normal compressibility and/or augmentation response. Right superficial veins: Saphenofemoral junction is patent without thrombus. Left deep veins: Unremarkable. The common femoral, femoral, proximal profunda femoral and popliteal veins are patent without thrombus. Normal Doppler waveforms. Normal compressibility and/or augmentation response. Left superficial veins: Saphenofemoral junction is patent without thrombus. Soft tissues: Unremarkable. IMPRESSION: No evidence of deep vein thrombosis. Electronically signed by: Jaimee Rodriguez On 03/09/2020 22:35:29 PM
[2020-03-09] MEDS: AZITHROMYCIN INJ 500 MG, VIAL MATE ADAPTER 1 EACH in D5W 250 ML IV SCH (22:49)
[2020-03-09 23:14] LABS: HEMATOCRIT 31.3 % (42.0-52.0); HEMOGLOBIN 8.3 g/dl (13.5-17.5); MEAN CORPUSCULAR HEMOGLOBIN 19.4 pg (27.0-33.0); MEAN CORPUSCULAR HGB CONC 26.5 g/dl (32.0-36.5); MEAN CORPUSCULAR VOLUME 73.3 fl (80.0-96.0); PLATELET COUNT, AUTOMATED 403 10^3/uL (150-450); RED BLOOD COUNT 4.27 10^6/uL (4.30-6.10); WHITE BLOOD COUNT 9.6 10^3/uL (4.0-10.0)
[2020-03-10] VITALS (9 sets, daily range): BP systolic 108–131; BP diastolic 53–61
[2020-03-10] MEDS: cefTRIAXone SOD 1 GM in D5W MINI-BAG PLUS 50 ML IV SCH ×2 (00:28→21:33)
[2020-03-10] MEDS: ACETAMINOPHEN TAB 650MG DOSE (2X325MG) PO PRN ×2 (01:10→09:11)
[2020-03-10] MEDS: LEVOTHYROXINE 137MCG TABLET (0.137MG) PO SCH (05:54)
[2020-03-10 06:13] LABS: HEMATOCRIT 28.3 % (42.0-52.0); HEMOGLOBIN 7.6 g/dl (13.5-17.5); MEAN CORPUSCULAR HEMOGLOBIN 19.6 pg (27.0-33.0); MEAN CORPUSCULAR HGB CONC 26.9 g/dl (32.0-36.5); MEAN CORPUSCULAR VOLUME 72.9 fl (80.0-96.0); PLATELET COUNT, AUTOMATED 369 10^3/uL (150-450); RED BLOOD COUNT 3.88 10^6/uL (4.30-6.10); WHITE BLOOD COUNT 8.8 10^3/uL (4.0-10.0)
[2020-03-10 06:39] LABS: ALBUMIN 2.8 GM/DL (3.2-5.2); ALT/SGPT 61 U/L (12-78); BILIRUBIN,TOTAL 1.7 MG/DL (0.2-1.0); BLOOD UREA NITROGEN 32 MG/DL (7-18); CARBON DIOXIDE LEVEL 35 MEQ/L (21-32); CHLORIDE LEVEL 100 MEQ/L (98-107); GLOMERULAR FILTRATION RATE > 60.0 (>42); GLUCOSE, FASTING 95 MG/DL (70-100); POTASSIUM SERUM 3.8 MEQ/L (3.5-5.1); SODIUM LEVEL 140 MEQ/L (136-145); TOTAL PROTEIN 7.1 GM/DL (6.4-8.2)
[2020-03-10] MEDS: ADVAIR HFA 115/21MCG INHALER INH SCH ×2 (07:21→19:41)
[2020-03-10] MEDS: TIOTROPIUM INHALER/CAPSULE (SPIRIVA) INH SCH (07:21)
[2020-03-10] MEDS: IPRATROPIUM 0.5MG/ALBUTEROL 2.5MG INH SOL UD 3ML (DUONEB)(J7620) NEB SCH ×3 (07:26→19:40)
[2020-03-10] MEDS: HumaLOG INSULIN (NovoLOG) PER UNIT SC SCH ×4 (07:30→20:04)
[2020-03-10] MEDS: GABAPENTIN 300 MG CAP PO SCH ×2 (08:49→20:14)
[2020-03-10] MEDS ORDERED: ramipriL 5 MG CAP PO SCH (09:00)
[2020-03-10] MEDS: FUROSEMIDE 100MG/10ML VIAL (J1940) IV SCH ×2 (09:39→16:20)
[2020-03-10] MEDS: atenoloL 50 MG TAB PO SCH ×2 (09:39→20:14)
[2020-03-10] MEDS: DIGOXIN 0.125 MG TAB PO SCH (09:40)
--- NOTE | 2020-03-10 14:32 | IPNPDOC ---
Text Note Date of Service The patient was seen on 03/10/20. NOTE Patient was seen and examined by me this morning. States that he feels much b kike but his leg edema is still worsening. Denies any shortness of breath at this time. PHYSICAL EXAMINATION: EYES: PERRLA, EOM intact, corrective lenses in place HENT: Normocephalic, atraumatic, moist mucous membranes, nasal clip in place NECK: mild jugular venous distention and hepatojugular reflex present CV: Regular rate and rhythm, S1S2 normal, no murmurs/rubs/gallops RESPIRATORY: Mild bibasilar crackles no rales/rhonchi/wheezes GI: BS positive in 4 quadrants, soft, nontender, nondistended, no rebound or guarding, no organomegaly MUSCULOSKELETAL: Normal ROM. No cyanosis, clubbing, joint deformity. Extremity edema +3 bilaterally, mild blistering of the skin R>L. INTEGUMENTARY: Intact, no rashes, Fluid blisters bilateral lower ext, multiple scabs from ones that have popped and are healing. No open ulcers. NEUROLOGIC: Cranial Nerves II-XII are intact, no focal deficits Labs reviewed Radiology reviewed IMAGING: CT chest: 1. There are bilateral pleural effusions with possible loculation on the left although there is no significant consolidation in the left lung. 2. There is a large right pleural effusion with adjacent consolidation the right lower lobe which may be due to compressive atelectasis, pneumonia, pulmonary embolic disease or carcinoma. 3. Panlobular emphysema. 4. Probable remote dissection of the distal thoracic and proximal abdominal aorta. ASSESSMENT: 69 y/o M admitted for acute CHF exacerbation, symptomatic anemia. PLAN: 1. Possible Acute biventricular CHF exacerbation. Likely ischemic, as the patient has history of CAD status post PCI. He has been started on 60 twice a day of Lasix and isn't at -500+400 mL in the last 18 hours. 2-D echo has been ordered. 2 g salt restriction 1.5 L fluid restriction. Daily weights, input output monitoring. Continue telemetry Bilateral pleural effusions, BNP 5255. 2. Bilateral pleural effusions likely 2/2 to problem left effusion is greater than the right. Possible loculation, but the patient hasn't no respiratory distress, and we will first try diuresis to see how he responds. We will also think about IR consultation for this loculation/effusion. 3. Pneumonia. Compressive atelectasis or a potential mild pneumonia.continue ceftriaxone, azithromycin, incentive spirometer. Sputum culture and atypical workup 4. Symptomatic anemia. Patient denies any blood in the urine or stool. Retic ulocyte count has been ordered. Iron and ferritin levels have been ordered. We will inquire more about his last colonoscopy. Currently Eliquis has been kept on hold and the patient will be getting 1 unit of PRBC to maintain a hemoglobin about 8. She'll get 40 of IV Lasix after PRBC. 5. Epistaxis. Resolved with clip placement. Holding eliquis as stated above 6. Hypertension. Will continue home medications and not contraindicated. 5. DM type II. Sliding scale insulin. Continue holding oral hypoglycemics. We will get A1c. 6. Hypothyroidism. Order TSH. C/w levothyroxine. 7. COPD. No currently in exacerbation. C/w duoneb ATC, spiriva, albuterol PRN. Optimal his medications on discharge 8. Aortic dissection of the distal thoracic and proximal abdominal aorta, chronic. C/w strict BP control, watched as o/p closely. 9. HLD. Statin. 10. CAD s/p PCI in 2003. We will continue his aspirin and statins. 11. Atrial fibrillation, chronic. Holding eliquis as stated above 12. Peripheral neuropathy. C/w gabapentin. DVT prophylaxis with SCDs Disposition unknown at this time. VS,Fishbone, I+O VS, Fishbone, I+O Laboratory Tests 03/09/20 17:21 03/09/20 23:03 03/10/20 05:44 Vital Signs Date Time Temp Pulse Resp B/P (MAP) Pulse Ox O2 Delivery O2 Flow Rate FiO2 03/10/20 12:58 97.5 79 20 131/61 94 Nasal Cannula 4.0 03/09/20 20:44 28 I&O- Last 24 Hours up to 6 AM 03/10/20 06:00 Intake Total 305 ml Output Total 1200 ml Balance -895 ml MAX RUST MD March 10, 2020 14:32
[2020-03-10] MEDS: PANTOPRAZOLE 40MG TAB (PROTONIX) PO SCH (15:51)
[2020-03-10 18:21] LABS: HEMATOCRIT 31.4 % (42.0-52.0); HEMOGLOBIN 8.7 g/dl (13.5-17.5)
[2020-03-10] MEDS: ATORVASTATIN 20 MG TAB PO SCH (20:14)
[2020-03-10] MEDS: AZITHROMYCIN INJ 500 MG, VIAL MATE ADAPTER 1 EACH in D5W 250 ML IV SCH (20:15)
--- NOTE | 2020-03-10 21:42 | ECHO ---
DATE OF PROCEDURE: 03/10/2020 Date of : 1950 Age: 69 Gender: Male Height: 70 inches Weight: 213 pounds Body surface area: 2.15 meters squared Inpatient: [address] [place] [address], room 4222 REFERRING PHYSICIAN: Dr. Roz Freeman INDICATION: Heart failure (unspecified)/atrial flutter/abnormal EKG. MEASUREMENTS: 2D Measurements: RV: 5.5 cm LV: 4.4 cm Septum: 1.1 cm Posterior wall: 1.0 cm Aortic root: 3.6 cm LA: 4.0 cm LVEF: 65% Doppler Measurements: AV: 1.4 meters per second LVOT: 1.2 meters per second LVOT diameter: 1.9 cm MV-E: 170 Early mitral deceleration time: 215 milliseconds PV: 0.75 meters per second Pulmonary artery acceleration time: 85 milliseconds RVSP: 68 mmHg IVC: 2.2 cm COMMENTS: Underlying atrial flutter with controlled ventricular response. Right bundle branch block. M-mode and two-dimensional echocardiography was performed with pulsed, continuous wave, color flow and tissue Doppler studies. Normal left ventricular size and wall thickness with flattened septum in keeping with right ventricular pressure overload, yet preserved global resting left ventricular systolic function. Borderline dilated left atrium but unable to characterize left ventricular diastolic function in light of underlying atrial flutter and mitral valve disorder. Prominently dilated right ventricle and right atrium with hypokinesis. Doppler evidence of severe pulmonary hypertension. Mildly dilated inferior vena cava with absent respiratory collapse in keeping with a significantly elevated central venous pressure/right heart failure. Aortic root size upper limits of normal. Three equal size aortic cusps with mild sclerosis but no stenosis and only very mild insufficiency. Severe mitral annular thickening with thickening of the mitral leaflets and Doppler evidence to suggest at least mild-moderate degree of LV inflow tract obstruction. No apparent mitral insufficiency. Normal appearing tricuspid valve with moderately severe to severe tricuspid insufficiency. No apparent intracardiac mass with very small posterior pericardial effusion but sizable pleural effusions.
[2020-03-11] MEDS: LEVOTHYROXINE 137MCG TABLET (0.137MG) PO SCH (05:33)
[2020-03-11 06:00] VITALS: BP 162/66
[2020-03-11 06:29] LABS: HEMATOCRIT 32.2 % (42.0-52.0); HEMOGLOBIN 8.7 g/dl (13.5-17.5); MEAN CORPUSCULAR VOLUME 74.2 fl (80.0-96.0); PLATELET COUNT, AUTOMATED 366 10^3/uL (150-450); RED BLOOD COUNT 4.34 10^6/uL (4.30-6.10); WHITE BLOOD COUNT 8.6 10^3/uL (4.0-10.0)
[2020-03-11 06:45] LABS: INR 1.27; PROTHROMBIN TIME 15.6 SECONDS (11.8-14.0)
[2020-03-11 06:46] LABS: PARTIAL THROMBOPLASTIN TIME 34.5 SECONDS (25.0-38.4)
[2020-03-11 06:52] LABS: ALBUMIN 2.9 GM/DL (3.2-5.2); BILIRUBIN,TOTAL 1.6 MG/DL (0.2-1.0); CALCIUM LEVEL 8.7 MG/DL (8.8-10.2); CREATININE FOR GFR 1.28 MG/DL (0.70-1.30); GLOMERULAR FILTRATION RATE 59.1 (>42); PERCENT SATURATION 5.5 % (19.7-50.0); POTASSIUM SERUM 3.7 MEQ/L (3.5-5.1); TOTAL PROTEIN 7.1 GM/DL (6.4-8.2)
[2020-03-11] MEDS: HumaLOG INSULIN (NovoLOG) PER UNIT SC SCH ×2 (07:08→12:25)
[2020-03-11 07:23] LABS: HEMOGLOBIN A1c 6.1 %
[2020-03-11] MEDS: TIOTROPIUM INHALER/CAPSULE (SPIRIVA) INH SCH (07:32)
[2020-03-11] MEDS: IPRATROPIUM 0.5MG/ALBUTEROL 2.5MG INH SOL UD 3ML (DUONEB)(J7620) NEB SCH ×3 (07:32→18:14)
[2020-03-11] MEDS: ADVAIR HFA 115/21MCG INHALER INH SCH ×2 (07:32→18:14)
[2020-03-11] MEDS: FUROSEMIDE 100MG/10ML VIAL (J1940) IV SCH (09:51)
[2020-03-11] MEDS: GABAPENTIN 300 MG CAP PO SCH (09:51)
[2020-03-11] MEDS: DIGOXIN 0.125 MG TAB PO SCH (09:52)
[2020-03-11] MEDS: PANTOPRAZOLE 40MG TAB (PROTONIX) PO SCH (09:52)
[2020-03-11 09:53] VITALS: BP 130/58
[2020-03-11] MEDS: atenoloL 50 MG TAB PO SCH (09:53)
[2020-03-11 14:00] VITALS: BP 126/58
[2020-03-11] MEDS ORDERED: FERR325T3 PO (14:42)
[2020-03-11] MEDS ORDERED: FURO40TA2 PO (14:47)
[2020-03-11] MEDS ORDERED: PANT40TA3 PO (14:47)
[2020-03-11] MEDS ORDERED: METO5TA PO (14:47)
--- NOTE | 2020-03-11 18:38 | DS.PDOC ---
Discharge Summary General Date of Admission March 09, 2020 at 19:57 Date of Discharge March 11, 2020 Primary Care Physician: Salina Barajas MD Attending Physician: MAX RUST MD Discharge Summary PROCEDURES PERFORMED DURING STAY: None ADMITTING DIAGNOSES: Acute CHF exacerbation, type unknown Bilateral pleural effusions Consolidation of right lower lung lobe Symptomatic anemia Epistaxis Hypertension Diabetes mellitus II DISCHARGE DIAGNOSES: Acute HFpEF exacerbation, likely ischemic. Bilateral pleural effusions. Pneumonia. Symptomatic anemia Bowman, epistaxis Hypertension. Diabetes mellitus II Hypothyroidism COPD, oxygen dependent Aortic dissection of the distal thoracic and proximal abdominal aorta, chronic. Hyperlipidemia Coronary artery disease s/p PCI (2003) Atrial fibrillation, chronic. Peripheral neuropathy COMPLICATIONS/CHIEF COMPLAINT: Chf Exacerbation. HISTORY OF PRESENT ILLNESS & HOSPITAL COURSE: Onesimo is a 69-year-old male with PMHx of coronary artery disease s/p 2 stents, oxygen dependent COPD (2 L NC, at rest, 5 L NC with activity), HFpEF, hypothyroidism, hyperlipidemia, hypertension, diabetes mellitus 2, atrial fi brillation Eliquis, peripheral neuropathy, who presented to the ED on 03/09/20 with a chief complaint of progressively worsening bilateral lower extremity swelling as well as active nosebleed. Over the past week prior to ED presentation. Patient has changed his home diuretic regimen a couple times at the suggestion of his machine tool operator's office. He had been on 40 mg daily, furosemide oral, shifted to 40 mg bid, and was most recently at 60 mg in the morning with 40 mg in the evening. He has accompanying blisters developing over the swollen lower extremity skin that are painful to the touch. He presented to his primary care physician on the day of his ED visit and was found to have worsening lung crackles with retention of fluid, and was subsequently instructed to come to the ED. In the ED in addition to his fluid overload, he also had active epistaxis which resolved with a nasal clip. In addition, he was in acute hypoxic respiratory failure secondary to fluid overload from HFpEF acute exa cerbation and chronic oxygen dependent COPD. He was given a Venturi mask and his saturations returned to the 90s. The Venturi setting was 28% FiO2. Imaging showed bilateral pleural effusions with potential for a loculation in the left lung, with accompanying right lower lobe consolidation. Patient did not appear to be in acute distress and was conversing in full senses. He had an elevated BNP with microcytic anemia. Troponins were negative and EKG showed no acute changes. The swelling in the right leg was greater than left, and a duplex lower extremity venous ultrasound was ordered with no signs of DVT on impression. He was subsequently admitted for acute heart failure exacerbation and symptomatic anemia. Upon admission, he began a 60 mg IV leg since dosing and was net -100 and 100 in the first 18 hours post admission. A 2-D echo showed severe pulmonary hypertension with some other findings that are detailed below. He was placed on a 1.5 L daily fluid restriction and a no salt added diet. His weight and input and output monitoring occurred on a scheduled basis. He continue with telemetry. In the setting of his history of coronary artery disease and stent placement, threshold for transfusion as it relates to his anemia was at a level of 8 or above. Therefore, patient received 1 unit of packed red blood cells which subsequently brought him up to hemoglobin of 8.6. An iron panel was ordered and showed significantly decreased serum iron levels with a reticulocyte percentage less than 2, indicating poor bone marrow response. He was not in any acute exacerbation as it relates to his COPD and home inhalers were continued with as needed, DuoNeb as. He was informed of the severity of his pulmonary hypertension and likely cause for his HFpEF. When he follows up with his machine tool operator, there is potential need for a right heart catheterization prior to referral to a pulmonary hypertension office. Patient was also instructed on the importance of maintaining a no salt added diet and elevating his legs whenever at rest. He will also be discharged on 40 mg oral furosemide home dosing with 5 mg metolazone to be taken 30 minutes prior to his morning furosemide dose. It is incumbent on the patient to resent to his primary care physician the next 7 days in order to have a renal profile drawn so as to monitor his baseline kidney functioning prior to initiating this home aggressive diuretic regimen. DISCHARGE MEDICATIONS: Please see below. ALLERGIES: Please see below. PHYSICAL EXAMINATION ON DISCHARGE: VITAL SIGNS: Please see below. GENERAL: Pleasant elderly male. No acute distress. Alert and oriented 3. Pale skin appearance. EYES: PERRLA, EOM intact, corrective lenses in place HENT: Normocephalic, atraumatic, moist mucous membranes, nasal clip in place NECK: mild jugular venous distention and hepatojugular reflex present CV: Regular rate and rhythm, S1S2 normal, no murmurs/rubs/gallops RESPIRATORY: Mild bibasilar crackles no rales/rhonchi/wheezes GI: BS positive in 4 quadrants, soft, nontender, nondistended, no rebound or guarding, no organomegaly MUSCULOSKELETAL: Normal ROM. No cyanosis, clubbing, joint deformity. Extremity edema +3 bilaterally, mild blistering of the skin R>L. INTEGUMENTARY: Intact, no rashes, Fluid blisters bilateral lower ext, multiple scabs from ones that have popped and are healing. No open ulcers. NEUROLOGIC: Cranial Nerves II-XII are intact, no focal deficits LABORATORY DATA: Please see below. IMAGING: Echocardiogram, 03/10/2020: Impression- Underlying atrial flutter with controlled ventricular response. Right bundle branch block. M-mode and two-dimensional echocardiography was performed with pulsed, continuous wave, color flow and tissue Doppler studies. Normal left ventricular size and wall thickness with flattened septum in keeping with right ventricular pressure overload, yet preserved global resting left ventricular systolic function. Borderline dilated left atrium but unable to characterize left ventricular diastolic function in light of underlying atrial flutter and mitral valve disorder. Prominently dilated right ventricle and right atrium with hypokinesis. Doppler evidence of severe pulmonary hypertension. Mildly dilated inferior vena cava with absent respiratory collapse in keeping with a significantly elevated central venous pressure/right heart failure. Aortic root size upper limits of normal. Three equal size aortic cusps with mild sclerosis but no stenosis and only very mild insufficiency. Severe mitral annular thickening with thickening of the mitral leaflets and Doppler evidence to suggest at least mild-moderate degree of LV inflow tract obstruction. No apparent mitral insufficiency. Normal appearing tricuspid valve with moderately severe to severe tricuspid insufficiency. No apparent intracardiac mass with very small posterior pericardial effusion but sizable pleural effusions. PROGNOSIS: Fair. ACTIVITY: As tolerated DIET: No salt added diet DISCHARGE INSTRUCTIONS & ITEMS TO FOLLOWUP ON ON OUTPATIENT: -Follow up with primary care provider (Dr. Salina Barajas) in the next 7 days for hospital discharge appointment and to have renal panel drawn due to the recent alterations in diuretic medication regimen. -Follow-up with machine tool operator (Dr. Moffett) in the next 12 weeks for pulmonary hypertension. Referral and possible right heart catheterization in the setting of right heart failure. -Resume administration of home Eliquis for anticoagulation secondary to history of atrial fibrillation. -Begin taking oral iron supplementation and oral pantoprazole as prescribed. DISCHARGE CONDITION: Stable TIME SPENT ON DISCHARGE: Greater than 35 minutes. Vital Signs/I&Os Vital Signs Date Time Temp Pulse Resp B/P (MAP) Pulse Ox O2 Delivery O2 Flow Rate FiO2 03/11/20 14:00 98.2 81 18 126/58 (80) 88 Nasal Cannula 3.0 03/09/20 20:44 28 I&O- Last 24 Hours up to 6 AM 03/11/20 06:00 Intake Total 2335 ml Output Total 2425 ml Balance -90 ml Laboratory Data Labs 24H Laboratory Tests 2 03/10/20 20:03: Bedside Glucose (Misc Panel) 139H 03/11/20 06:11: Reticulocyte # (auto) 82.9H, Nucleated Red Blood Cells % (auto) 0.0, Percent Reticulocyte Count 1.9H, Reticulocyte Hemoglobin Equivalent 18.3L, Prothrombin Time 15.6H, Prothromb Time International Ratio 1.27, Activated Partial Thrombopl ast Time 34.5, Anion Gap 5L, Glomerular Filtration Rate 59.1, Estimated Mean Plasma Glucose 128H, Hemoglobin A1c 6.1, Calcium Level 8.7L, Iron Level 23L, Total Iron Binding Capacity 418, Transferrin % Saturation 5.5L, Ferritin 28, Total Bilirubin 1.6H, Aspartate Amino Transf (AST/SGOT) 43H, Alanine Aminotransferase (ALT/SGPT) 58, Alkaline Phosphatase 186H, Total Protein 7.1, Albumin 2.9L, Albumin/Globulin Ratio 0.7 03/11/20 11:36: Bedside Glucose (Misc Panel) 134H CBC/BMP Laboratory Tests 03/10/20 17:55 03/11/20 06:11 FSBS Laboratory Tests Test 03/10/20 20:03 03/11/20 11:36 Range/Units Bedside Glucose (Misc Panel) 139 134 83-110 MG/DL Microbiology Microbiology 03/11/20 Stool Occult Blood (SAAD) - Final, Complete 03/09/20 Blood Culture - Preliminary, Resulted No Growth after 48 hours. All Specime... 03/09/20 Blood Culture - Preliminary, Resulted No Growth after 48 hours. All Specime... Discharge Medications Scheduled Apixaban (Eliquis) 5 Mg Tab, 5 MG PO BID, (Reported) Aspirin (Aspir 81) 81 Mg Tab, 81 MG PO DAILY, (Reported) Atenolol (Atenolol) 100 Mg Tab, 100 MG PO BID, (Reported) Atorvastatin Calcium (Atorvastatin Calcium) 80 Mg Tablet, 80 MG PO QPM, (Reported) Digoxin (Digoxin) 125 Mcg Tablet, 125 MCG PO DAILY, (Reported) Ferrous Sulfate (Ferrous Sulfate) 325 Mg Tablet.dr, 325 MG PO TID Fluticasone Propion/Salmeterol (Advair Hfa 115-21 Mcg Inhaler) 1 Aer Aer, 2 PUFFS INH BID, (Reported) Furosemide (Furosemide) 40 Mg Tablet, 40 MG PO BID Gabapentin (Gabapentin) 300 Mg Capsule, 600 MG PO QAM, (Reported) Gabapentin (Gabapentin) 300 Mg Capsule, 900 MG PO QPM, (Reported) Levothyroxine Sodium (Levothyroxine Sodium) 137 Mcg Tablet, 137 MCG PO QAM, (Reported) Metformin HCl (Metformin HCl) 1,000 Mg Tablet, 1,000 MG PO BID, (Reported) Metolazone (Metolazone) 5 Mg Tablet, 1 TAB PO DAILY Please take 30 minutes before taking your morning 40mg furosemide dose. Pantoprazole Sodium (Pantoprazole Sodium) 40 Mg Tablet.dr, 40 MG PO BID Ramipril (Altace) 10 Mg Cap, 10 MG PO DAILY, (Reported) Sitagliptin (Januvia) 50 Mg Tablet, 50 MG PO DAILY, (Reported) Tiotropium Hammett (Spiriva) 18 Mcg Cap, 18 MCG INH DAILY, (Reported) Vitamin B Complex/Folic Acid (B-Complex Tablet) 0.4 Mg Tablet, 1 TAB PO DAILY, (Reported) Scheduled PRN Albuterol Sulf (Albuterol Sulfate) 2.5 Mg/3 Ml Vial.neb, 2.5 MG INH Q6H PRN for SHORTNESS OF BREATH, (Reported) Nitroglycerin (Nitrostat) 0.4 Mg Subl, 0.4 MG SL Q5MP PRN for CHEST PAIN, (Reported) Allergies Coded Allergies: No Known Allergies (Unverified , 04/27/17) WINNIE ODELL D.O. March 11, 2020 18:38
== END 2020-03-11 18:25 | disposition home health service (06) | DRG 291 ==
LOC: M ED 16:34 → M ED INP 19:57 → ENRESERV 20:07 → M MSPAV 21:14
PROVIDERS: ADMIT Internal Medicine; ATTEND Internal Medicine
PROC: 30233N1 Transfusion of Nonautologous Red Blood Cells into Peripheral Vein, Percutaneous Approach (ICD-10-PCS; principal; 2020-03-10)
DX: I11.0 Hypertensive heart disease with heart failure (principal); J18.9 Pneumonia, unspecified organism; I48.20 Chronic atrial fibrillation, unspecified; I50.33 Acute on chronic diastolic (congestive) heart failure; J44.9 Chronic obstructive pulmonary disease, unspecified; E11.42 Type 2 diabetes mellitus with diabetic polyneuropathy; I27.20 Pulmonary hypertension, unspecified; E03.9 Hypothyroidism, unspecified; Z66 Do not resuscitate; E78.5 Hyperlipidemia, unspecified; R04.0 Epistaxis; D64.9 Anemia, unspecified; I25.10 Atherosclerotic heart disease of native coronary artery without angina pectoris; Z99.81 Dependence on supplemental oxygen; Z95.5 Presence of coronary angioplasty implant and graft; Z87.891 Personal history of nicotine dependence; Z79.01 Long term (current) use of anticoagulants; Z79.82 Long term (current) use of aspirin; Z79.84 Long term (current) use of oral hypoglycemic drugs; Z79.899 Other long term (current) drug therapy

== ENCOUNTER → 2020-03-16 | Outpatient (REF) | payer OTHER ==
[~2020-03-16] MED LIST changes: +ALBU83IN INH; +ATOR80TA59 PO; +B-COTAB10 PO; +DIGO0.123 PO; +FERR325T3 PO; +FURO40TA2 PO; +GABA-843 PO; +GABA600T4 PO; +LEVO137T2 PO; +METF10004 PO; +METO5TA PO; +PANT40TA3 PO; +SITA50TAB PO
[2020-03-16 18:21] LABS: CALCIUM LEVEL 9.1 MG/DL (8.8-10.2); CREATININE FOR GFR 1.36 MG/DL (0.70-1.30); GLOMERULAR FILTRATION RATE 55.2 (>42); POTASSIUM SERUM 4.8 MEQ/L (3.5-5.1)
== END ==
LOC: M LAB REF 16:20
PROVIDERS: ATTEND Family Medicine
DX: I10 Essential (primary) hypertension (principal)

== ENCOUNTER → 2020-03-24 | Outpatient (REF) | payer MEDICARE, OTHER ==
[2020-03-24 18:41] LABS: CALCIUM LEVEL 9.5 MG/DL (8.8-10.2); CREATININE FOR GFR 1.61 MG/DL (0.70-1.30); GLOMERULAR FILTRATION RATE 45.4 (>42)
== END ==
LOC: M LABDRWAD 17:09
PROVIDERS: ATTEND Physician Assistant
DX: I50.32 Chronic diastolic (congestive) heart failure (principal); I48.3 Typical atrial flutter

== ENCOUNTER → 2020-04-10 | Outpatient (REF) | payer MEDICARE, OTHER ==
[2020-04-10 14:10] LABS: BASO # 0.1 10^3/uL (0.0-0.2); BASO % 0.7 % (0.0-1.0); EOS # 0.1 10^3/uL (0.0-0.5); EOS % 0.7 % (0.0-3.0); HEMATOCRIT 35.9 % (42.0-52.0); HEMOGLOBIN 10.8 g/dl (13.5-17.5); LYMPH # 0.8 10^3/uL (1.5-5.0); LYMPH % 9.8 % (24.0-44.0); MEAN CORPUSCULAR HEMOGLOBIN 25.1 pg (27.0-33.0); MEAN CORPUSCULAR HGB CONC 30.1 g/dl (32.0-36.5); MEAN CORPUSCULAR VOLUME 83.3 fl (80.0-96.0); MONO # 0.8 10^3/uL (0.0-0.8); MONO % 8.9 % (0.0-5.0); NEUTROPHILS # 6.8 10^3/uL (1.5-8.5); NEUTROPHILS % 79.2 % (36.0-66.0); PLATELET COUNT, AUTOMATED 267 10^3/uL (150-450); RED BLOOD COUNT 4.31 10^6/uL (4.30-6.10); WHITE BLOOD COUNT 8.6 10^3/uL (4.0-10.0)
[2020-04-10 14:14] LABS: ALBUMIN 3.5 GM/DL (3.2-5.2); BILIRUBIN,TOTAL 1.1 MG/DL (0.2-1.0); CALCIUM LEVEL 9.6 MG/DL (8.8-10.2); CREATININE FOR GFR 1.54 MG/DL (0.70-1.30); GLOMERULAR FILTRATION RATE 47.8 (>42); POTASSIUM SERUM 4.3 MEQ/L (3.5-5.1); TOTAL PROTEIN 7.5 GM/DL (6.4-8.2)
[2020-04-10 14:49] LABS: ANISOCYTOSIS 1+; OVALOCYTES 1+; PLATELET ESTIMATE NORMAL (NORMAL); POIKILOCYTOSIS 1+
== END ==
LOC: M LABDRWAD 12:41
PROVIDERS: ATTEND Family Medicine
DX: I27.22 Pulmonary hypertension due to left heart disease (principal)

== ENCOUNTER → 2020-04-10 | Outpatient (REF) | payer MEDICARE, OTHER ==
[2020-04-10 14:08] LABS: CALCIUM LEVEL 8.9 MG/DL (8.8-10.2); CREATININE FOR GFR 1.55 MG/DL (0.70-1.30); GLOMERULAR FILTRATION RATE 47.4 (>42); POTASSIUM SERUM 4.4 MEQ/L (3.5-5.1)
== END ==
LOC: M LABDRWAD 12:43
PROVIDERS: ATTEND Physician Assistant
DX: I50.32 Chronic diastolic (congestive) heart failure (principal); I48.3 Typical atrial flutter

== ENCOUNTER → 2020-06-27 | Outpatient (REF) | payer MEDICARE, OTHER ==
[~2020-06-27] MED LIST changes: -ASPI81TA85 PO; +ASPI81TA86 PO; +PANT40TA29 PO; -PANT40TA3 PO
[2020-06-27 15:06] LABS: BASO % 0.4 % (0.0-1.0); EOS # 0.1 10^3/uL (0.0-0.5); EOS % 0.6 % (0.0-3.0); HEMATOCRIT 36.3 % (42.0-52.0); HEMOGLOBIN 11.8 g/dl (13.5-17.5); LYMPH % 12.4 % (24.0-44.0); MEAN CORPUSCULAR HEMOGLOBIN 30.6 pg (27.0-33.0); MEAN CORPUSCULAR HGB CONC 32.5 g/dl (32.0-36.5); MONO # 0.8 10^3/uL (0.0-0.8); MONO % 9.3 % (0.0-5.0); NEUTROPHILS # 6.2 10^3/uL (1.5-8.5); NEUTROPHILS % 77.1 % (36.0-66.0); PLATELET COUNT, AUTOMATED 207 10^3/uL (150-450); RED BLOOD COUNT 3.86 10^6/uL (4.30-6.10); WHITE BLOOD COUNT 8.1 10^3/uL (4.0-10.0)
[2020-06-27 15:21] LABS: HEMOGLOBIN A1c 5.6 %
[2020-06-27 15:33] LABS: ALBUMIN 3.6 GM/DL (3.2-5.2); BILIRUBIN,TOTAL 1.1 MG/DL (0.2-1.0); CALCIUM LEVEL 9.2 MG/DL (8.8-10.2); CHOLESTEROL RISK RATIO 5.727 (<5); CREATININE FOR GFR 1.71 MG/DL (0.70-1.30); FREE T4 1.27 NG/DL (0.76-1.46); GLOMERULAR FILTRATION RATE 42.2 (>42); MAGNESIUM LEVEL 1.9 MG/DL (1.8-2.4); POTASSIUM SERUM 4.1 MEQ/L (3.5-5.1); THYROID STIMULATING HORMONE 1.5 uIU/ML (0.358-3.740); TOTAL PROTEIN 7.3 GM/DL (6.4-8.2)
[2020-06-27 15:59] LABS: CREATININE, URINE 80.2 MG/DL; MAU/CREAT RATIO 11.2 MCG/MG (0.0-30.0)
== END ==
LOC: M LABDRWAD 08:37
PROVIDERS: ATTEND Nurse Practitioner Family
DX: E11.65 Type 2 diabetes mellitus with hyperglycemia (principal); I50.32 Chronic diastolic (congestive) heart failure; I48.3 Typical atrial flutter

== ENCOUNTER → 2020-09-04 | Outpatient (REF) | payer MEDICARE, OTHER | LOC: M LABDRWAD 12:39 | PROVIDERS: ATTEND Internal Medicine Cardiovascular Disease | DX: I48.92 Unspecified atrial flutter (principal); I50.32 Chronic diastolic (congestive) heart failure ==

== ENCOUNTER → 2020-12-22 | Outpatient (REF) | payer MEDICARE, OTHER ==
[~2020-12-22] MED LIST changes: +GABA-282; +GABA-282 PO; -GABA-843; -GABA-843 PO
[2020-12-22 13:33] LABS: ALBUMIN 3.5 GM/DL (3.2-5.2); BILIRUBIN,TOTAL 0.8 MG/DL (0.2-1.0); CHOLESTEROL RISK RATIO 5.105 (<5); CREATININE FOR GFR 1.71 MG/DL (0.70-1.30); GLOMERULAR FILTRATION RATE 42.2 (>42); POTASSIUM SERUM 3.6 MEQ/L (3.5-5.1)
[2020-12-22 14:37] LABS: HEMOGLOBIN A1c 5.2 %
== END ==
LOC: M LABDRWAD 12:40
PROVIDERS: ATTEND Nurse Practitioner Family
DX: E78.2 Mixed hyperlipidemia (principal); E11.65 Type 2 diabetes mellitus with hyperglycemia; I10 Essential (primary) hypertension

== ENCOUNTER → 2021-07-26 | Outpatient (CLI) | payer MEDICARE, OTHER ==
--- NOTE | 2021-07-26 09:53 | REP ---
INDICATION: PANLOBULAR EMPHYSEMA COMPARISON: 03/09/2020 TECHNIQUE: PA and lateral. FINDINGS: The mediastinum and cardiac silhouette are stable and within normal limits. Lung hodges demonstrate diffuse chronic pleuroparenchymal changes. No obvious focal consolidation or effusion. No pneumothorax. The skeletal structures are intact and normal. IMPRESSION: Chronic pleuroparenchymal changes. No obvious acute consolidation or effusion. <Electronically signed by Marvin Brady > 07/26/21 0949
== END ==
LOC: M ADAMS 09:26
PROVIDERS: ATTEND Internal Medicine Pulmonary Disease
DX: J43.1 Panlobular emphysema (principal)

== ENCOUNTER → 2021-07-26 | Outpatient (CLI) | payer MEDICARE, OTHER ==
[2021-07-26 14:07] LABS: BILIRUBIN,TOTAL 0.8 MG/DL (0.2-1.0); CALCIUM LEVEL 9.9 MG/DL (8.8-10.2); CREATININE FOR GFR 1.57 MG/DL (0.70-1.30); GLOMERULAR FILTRATION RATE 46.5 (>42); POTASSIUM SERUM 3.9 MEQ/L (3.5-5.1)
[2021-07-26 14:08] LABS: ALBUMIN 3.4 GM/DL (3.2-5.2); CHOLESTEROL RISK RATIO 3.828 (<5); FREE T4 1.16 NG/DL (0.76-1.46); THYROID STIMULATING HORMONE 2.19 uIU/ML (0.358-3.740); TOTAL PROTEIN 6.9 GM/DL (6.4-8.2)
[2021-07-26 14:41] LABS: HEMOGLOBIN A1c 5.1 %
[2021-07-26 15:34] LABS: CREATININE, URINE 39.1 MG/DL; MALB URINE SIEMENS 9.2 MG/L; MAU/CREAT RATIO 23.5 MCG/MG (0.0-30.0)
== END ==
LOC: M LABDRWAD 09:21
PROVIDERS: ATTEND Nurse Practitioner Family
DX: Z00.00 Encounter for general adult medical examination without abnormal findings (principal); E78.2 Mixed hyperlipidemia; E11.65 Type 2 diabetes mellitus with hyperglycemia; E03.9 Hypothyroidism, unspecified; I10 Essential (primary) hypertension

== ENCOUNTER → 2022-02-25 | Outpatient (CLI) | payer MEDICARE, OTHER ==
[2022-02-25 15:05] LABS: ALBUMIN 3.8 GM/DL (3.2-5.2); BILIRUBIN,TOTAL 1.3 MG/DL (0.2-1.0); CALCIUM LEVEL 9.3 MG/DL (8.8-10.2); CHOLESTEROL RISK RATIO 3.848 (<5); CREATININE FOR GFR 1.82 MG/DL (0.70-1.30); GLOMERULAR FILTRATION RATE 39.2 (>42); POTASSIUM SERUM 4.3 MEQ/L (3.5-5.1); TOTAL 25(OH) VITAMIN D 42.9 NG/ML (30.0-100.0); TOTAL PROTEIN 7.1 GM/DL (6.4-8.2)
[2022-02-25 15:06] LABS: CREATININE, URINE 36.4 MG/DL; MALB URINE SIEMENS 7.3 MG/L
[2022-02-25 16:31] LABS: HEMOGLOBIN A1c 5.2 %
== END ==
LOC: M ADAMS 09:07
PROVIDERS: ATTEND Nurse Practitioner Family
DX: E78.2 Mixed hyperlipidemia (principal); E11.65 Type 2 diabetes mellitus with hyperglycemia; I10 Essential (primary) hypertension; E55.9 Vitamin D deficiency, unspecified; Z79.899 Other long term (current) drug therapy

== ENCOUNTER → 2022-03-13 | Outpatient (REF) | payer MEDICARE, OTHER ==
[2022-03-13 17:56] LABS: PERCENT SATURATION 27.9 % (19.7-50.0)
== END ==
LOC: M LAB REF 16:57
PROVIDERS: ATTEND Internal Medicine Nephrology
DX: E61.1 Iron deficiency (principal); D63.1 Anemia in chronic kidney disease

== ENCOUNTER 2022-04-20 06:25 | Inpatient (IN) | payer MEDICARE, OTHER ==
[2022-04-20] VITALS (60 sets, daily range): BP systolic 67–136; BP diastolic 32–63
[~2022-04-20] VITALS: Ht 170.2 cm; Wt 85.9 kg
[~2022-04-20 06:25] MED LIST changes: +ALBU2.5V10 INH; -ALBU83IN INH
[2022-04-20] MEDS ORDERED: NS 1,000 ML IV ONE ×2 (06:55→07:15)
[2022-04-20 07:13] LABS: HEMATOCRIT 41.7 % (42.0-52.0); HEMOGLOBIN 13.9 g/dl (13.5-17.5); MEAN CORPUSCULAR HEMOGLOBIN 31.3 pg (27.0-33.0); MEAN CORPUSCULAR HGB CONC 33.3 g/dl (32.0-36.5); MEAN CORPUSCULAR VOLUME 93.9 fl (80.0-96.0); PLATELET COUNT, AUTOMATED 303 10^3/uL (150-450); RED BLOOD COUNT 4.44 10^6/uL (4.30-6.10); WHITE BLOOD COUNT 7.7 10^3/uL (4.0-10.0)
[2022-04-20] MEDS ORDERED: NS 2,540 ML in IV 1 EA IV ONE (07:25)
[2022-04-20 07:39] LABS: VENOUS BASE EXCESS -15.4 (-2.0-2.0); VENOUS HCO3 13.8 MEQ/L (23.0-27.0); VENOUS O2 SATURATION 79.1 % (60.0-80.0); VENOUS PARTIAL PRESSURE CO2 45.5 mmHg (38.0-50.0); VENOUS PARTIAL PRESSURE O2 54.7 mmHg (30.0-50.0); VENOUS PH 7.101 UNITS (7.330-7.430); VENOUS STANDARD HCO3 12.5 MEQ/L; VENOUS TOTAL CO2 15.2 MEQ/L (24.0-28.0)
[2022-04-20 07:41] LABS: ATYPICAL LYMPH 1 % (0-5); LYMPHOCYTES 7 % (16-44); METAMYELOCYTES 1 % (0-0); MONOCYTES 15 % (0-5)
[2022-04-20 07:43] LABS: BURR CELLS 3+; OVALOCYTES 2+; PLATELET ESTIMATE NORMAL (NORMAL)
[2022-04-20 07:44] LABS: NEUTROPHILS 38 % (28-66)
[2022-04-20 07:47] LABS: CK-MB VALUE MASS 4.7 NG/ML (<3.6); MB/CK RELATIVE INDEX 0.78 (< OR =4)
[2022-04-20] MEDS ORDERED: cefTRIAXone SOD 2 GM in D5W MINI-BAG PLUS 50 ML IV ONE (07:50)
[2022-04-20 07:51] LABS: ALBUMIN 3.2 GM/DL (3.2-5.2); BILIRUBIN,DIRECT 0.2 MG/DL (0.0-0.2); BILIRUBIN,TOTAL 0.8 MG/DL (0.2-1.0); CALCIUM LEVEL 8.7 MG/DL (8.8-10.2); CREATININE FOR GFR 9.57 MG/DL (0.70-1.30); GLOMERULAR FILTRATION RATE 5.8 (>42); TOTAL PROTEIN 7.2 GM/DL (6.4-8.2)
[2022-04-20 07:51] LABS: INR 1.3; PROTHROMBIN TIME 16.6 SECONDS (12.7-14.5)
[2022-04-20 08:17] LABS: RSV AMPLIFICATION NEGATIVE (NEGATIVE)
[2022-04-20 08:19] LABS: DIGOXIN LEVEL 1.6 NG/ML (0.5-2.0); MAGNESIUM LEVEL 2.8 MG/DL (1.8-2.4)
[2022-04-20 08:22] LABS: URIC ACID 15.1 MG/DL (3.5-7.2)
[2022-04-20 08:25] LABS: ERYTHROCYTE SEDIMENTATION RATE 67 mm/hr (0-20)
[2022-04-20] MEDS ORDERED: ALBUTEROL SULFATE 2.5 MG/0.5 ML INH NEB SOLN NEB PRN ×2 (08:40→12:05)
[2022-04-20] MEDS ORDERED: FURO40TA2 PO (08:53)
[2022-04-20] MEDS ORDERED: ASPI81TA26 PO (08:53)
[2022-04-20] MEDS ORDERED: ENOXAPARIN 40MG/0.4ML SYRINGE (J1650 PER 10MG) SC SCH (09:00)
[2022-04-20] MEDS: SODIUM BICARBONATE 150 MEQ in D5W 1,000 ML IV SCH ×3 (09:44→17:47)
[2022-04-20] MEDS ORDERED: HOME MED LIST COMPLETE! XX SCH (09:50)
[2022-04-20] MEDS ORDERED: METO5TA PO (09:50)
[2022-04-20] MEDS ORDERED: OMEG10002 PO (09:50)
[2022-04-20] MEDS ORDERED: EZET10TA21 PO (09:50)
[2022-04-20] MEDS ORDERED: FERR1TAB8 PO (09:50)
[2022-04-20] MEDS ORDERED: FLUT1BLS4 INH (09:50)
[2022-04-20] MEDS ORDERED: VITA100093 PO (09:50)
[2022-04-20] MEDS ORDERED: LR 1,000 ML IV ONE ×3 (10:30→11:30)
[2022-04-20] MEDS ORDERED: GLUCAGON INJ 1MG VIAL SC PRN (11:25)
[2022-04-20] MEDS ORDERED: NOREPINEPHRINE/DEXTROSE 8 MG in IV 492 EA IV SCH (11:25)
[2022-04-20] MEDS ORDERED: GLUCOSE 4GM CHEW TABLET PO PRN (11:25)
[2022-04-20] MEDS ORDERED: DEXTROSE 50% 50 ML SYRINGE IV PRN (11:25)
[2022-04-20] MEDS ORDERED: PIPERACILLIN/TAZOBACTAM SOD 3.375 GM in D5W MINI-BAG PLUS 50 ML IV SCH (11:55)
[2022-04-20] MEDS: INSULIN LISPRO (NovoLOG) PER UNIT SC SCH ×3 (12:00→21:00)
[2022-04-20 12:10] LABS: OSMOLALITY URINE 327 MOSM/KG (50-1400)
[2022-04-20 12:13] LABS: APPEARANCE, URINE CLOUDY (CLEAR); BACTERIA, URINE AUTO 1+ (NEGATIVE); BILIRUBIN, URINE AUTO 1+ (NEGATIVE); BLOOD, URINE BLOOD NEGATIVE (NEGATIVE); COLOR, URINE AMBER (YELLOW); GLUCOSE, URINE (UA) AUTO NEGATIVE (NEGATIVE); KETONE, URINE AUTO TRACE mg/dL (NEGATIVE); LEUKOCYTE ESTERASE, URINE AUTO NEGATIVE (NEGATIVE); MUCUS, URINE SMALL (NEGATIVE); NITRITE, URINE AUTO NEGATIVE (NEGATIVE); PROTEIN, URINE AUTO 2+ mg/dL (NEGATIVE); RBC, URINE AUTO 2 /HPF (0-3); SPECIFIC GRAVITY URINE AUTO 1.021 (1.002-1.035); SQUAMOUS EPITHELIAL CELL UR AU 0 /HPF (0-6); UROBILINOGEN, URINE AUTO 0.2 mg/dL (0.0-2.0); WBC, URINE AUTO 3 /HPF (0-3)
[2022-04-20] MEDS: PIPERACILLIN/TAZOBACTAM SOD 2.25 GM in D5W MINI-BAG PLUS 50 ML IV SCH ×2 (13:08→18:51)
[2022-04-20 13:34] LABS: ALBUMIN 2.1 GM/DL (3.2-5.2); CALCIUM LEVEL 6.5 MG/DL (8.8-10.2); CREATININE FOR GFR 8.08 MG/DL (0.70-1.30); MAGNESIUM LEVEL 2.1 MG/DL (1.8-2.4); PHOSPHORUS LEVEL 8.7 MG/DL (2.5-4.9); POTASSIUM SERUM 3.8 MEQ/L (3.5-5.1)
[2022-04-20 13:39] LABS: SODIUM,RANDOM URINE < 10 MEQ/L
[2022-04-20] MEDS ORDERED: CALCIUM GLUCONATE 1,000 MG in D5W MINI-BAG PLUS 100 ML IV ONE (14:00)
[2022-04-20] MEDS ORDERED: VASOPRESSIN INJ 20 UNITS/ML VIAL As Ordered ONE (14:44)
[2022-04-20] MEDS: THIAMINE 200MG 2ML VIAL IV SCH ×2 (15:12→21:18)
[2022-04-20] MEDS: MIDODRINE 5 MG TAB PO SCH ×2 (15:15→22:20)
[2022-04-20] MEDS ORDERED: ONDANSETRON 4MG 2ML VIAL IV PRN (15:40)
[2022-04-20] MEDS: HYDROCORTISONE 100 MG/2 ML VIAL (J1720 PER 1) IV SCH ×2 (16:21→22:20)
[2022-04-20] MEDS: VASOPRESSIN INJ 20 UNITS in NS 499 ML IV SCH ×2 (16:24→23:37)
[2022-04-20] MEDS: PHENYLEPHRINE HCL INJ 50 MG in D5W 495 ML IV SCH (16:24)
[2022-04-20] MEDS ORDERED: LevoFLOXacin 500 MG TABLET PO SCH (17:00)
[2022-04-20 17:20] LABS: CALCIUM LEVEL 6.4 MG/DL (8.8-10.2); CREATININE FOR GFR 7.12 MG/DL (0.70-1.30); GLOMERULAR FILTRATION RATE 8.1 (>42); POTASSIUM SERUM 3.2 MEQ/L (3.5-5.1)
[2022-04-20] MEDS ORDERED: VANCOMYCIN ORAL SOL 250MG/5ML ORAL SYRINGE PO SCH (18:00)
[2022-04-20] MEDS ORDERED: HEPARIN SOD (PORCINE) 5000UNITS/ML 1ML VIAL/SYRINGE IV PRN (18:00)
[2022-04-20] MEDS ORDERED: LevoFLOXacin 500 MG TABLET PO ONE (18:00)
[2022-04-20] MEDS: HEPARIN DRIP 25,000 UNITS in IV 1 EA IV SCH (18:04)
[2022-04-20 19:30] LABS: MAGNESIUM LEVEL 1.8 MG/DL (1.8-2.4)
[2022-04-20] MEDS ORDERED: ADVAIR HFA 45/21MCG INHALER INH SCH (20:00)
[2022-04-20] MEDS ORDERED: FUROSEMIDE 100MG/10ML VIAL (J1940) IV ONE (20:00)
[2022-04-20] MEDS: KCL 10MEQ/100ML SWI (KRUN) 10 MEQ in IV 1 EA IV SCH ×2 (21:17→22:20)
[2022-04-20] MEDS: IPRATROPIUM 0.5MG/ALBUTEROL 2.5MG INH SOL UD 3ML (DUONEB) NEB SCH (23:35)
[2022-04-21] VITALS (88 sets, daily range): BP systolic 74–114; BP diastolic 43–61
[2022-04-21] MEDS: KCL 10MEQ/100ML SWI (KRUN) 10 MEQ in IV 1 EA IV SCH ×2 (00:05→01:14)
[2022-04-21] MEDS: ACETAMINOPHEN TAB 650MG DOSE (2X325MG) PO PRN ×2 (00:06→22:02)
[2022-04-21 01:12] LABS: CALCIUM LEVEL 5.9 MG/DL (8.8-10.2); CREATININE FOR GFR 6.75 MG/DL (0.70-1.30); GLOMERULAR FILTRATION RATE 8.6 (>42); POTASSIUM SERUM 3.2 MEQ/L (3.5-5.1)
[2022-04-21] MEDS ORDERED: CALCIUM CARBONATE 500 MG CHEW U/D PO ONE (02:00)
[2022-04-21] MEDS ORDERED: POTASSIUM CHLORIDE 10MEQ SR TABLET PO ONE (02:00)
[2022-04-21] MEDS ORDERED: MAG SULF 1GM/100ML (MAG RUN) 1 GM in IV 1 EA IV ONE ×2 (02:00→15:00)
[2022-04-21] MEDS: PIPERACILLIN/TAZOBACTAM SOD 2.25 GM in D5W MINI-BAG PLUS 50 ML IV SCH ×2 (02:01→06:21)
[2022-04-21] MEDS: PHENYLEPHRINE HCL INJ 50 MG in D5W 495 ML IV SCH ×3 (02:01→23:38)
[2022-04-21] MEDS ORDERED: KCL 20MEQ IN 100ML SWI (KRUN) 20 MEQ in IV 1 EA IV ONE ×2 (03:00)
[2022-04-21] MEDS: HYDROCORTISONE 100 MG/2 ML VIAL (J1720 PER 1) IV SCH ×4 (04:53→22:03)
[2022-04-21] MEDS: IPRATROPIUM 0.5MG/ALBUTEROL 2.5MG INH SOL UD 3ML (DUONEB) NEB SCH ×4 (05:34→19:20)
[2022-04-21] MEDS: MIDODRINE 5 MG TAB PO SCH ×3 (05:50→22:02)
[2022-04-21 05:57] LABS: BASO # 0.1 10^3/uL (0.0-0.2); BASO % 0.7 % (0.0-1.0); HEMATOCRIT 29.4 % (42.0-52.0); LYMPH # 0.4 10^3/uL (1.5-5.0); LYMPH % 5.3 % (24.0-44.0); MEAN CORPUSCULAR HEMOGLOBIN 30.7 pg (27.0-33.0); MEAN CORPUSCULAR HGB CONC 34.4 g/dl (32.0-36.5); MEAN CORPUSCULAR VOLUME 89.4 fl (80.0-96.0); MONO % 14.1 % (2.0-8.0); NEUTROPHILS # 5.6 10^3/uL (1.5-8.5); NEUTROPHILS % 77.7 % (36.0-66.0); RED BLOOD COUNT 3.29 10^6/uL (4.30-6.10); WHITE BLOOD COUNT 7.2 10^3/uL (4.0-10.0)
[2022-04-21 06:06] LABS: HEMOGLOBIN 10.1 g/dl (13.5-17.5); PLATELET COUNT, AUTOMATED 171 10^3/uL (150-450)
[2022-04-21] MEDS: VASOPRESSIN INJ 20 UNITS in NS 499 ML IV SCH ×3 (07:01→23:39)
[2022-04-21 07:17] LABS: ALBUMIN 2.3 GM/DL (3.2-5.2); BILIRUBIN,DIRECT 0.3 MG/DL (0.0-0.2); BILIRUBIN,TOTAL 0.7 MG/DL (0.2-1.0); CREATININE FOR GFR 6.94 MG/DL (0.70-1.30); GLOMERULAR FILTRATION RATE 8.4 (>42); PHOSPHORUS LEVEL 6.1 MG/DL (2.5-4.9); POTASSIUM SERUM 3.4 MEQ/L (3.5-5.1); TOTAL PROTEIN 5.1 GM/DL (6.4-8.2)
[2022-04-21] MEDS: THIAMINE 200MG 2ML VIAL IV SCH ×2 (08:33→20:13)
[2022-04-21] MEDS: INSULIN LISPRO (NovoLOG) PER UNIT SC SCH ×4 (08:33→20:12)
[2022-04-21 11:30] LABS: CALCIUM LEVEL 5.8 MG/DL (8.8-10.2); CREATININE FOR GFR 6.77 MG/DL (0.70-1.30); GLOMERULAR FILTRATION RATE 8.6 (>42); POTASSIUM SERUM 3.1 MEQ/L (3.5-5.1)
[2022-04-21] MEDS: KCL IV SCH ×6 (12:39→14:41)
[2022-04-21] MEDS: SWI IV SCH ×6 (12:39→14:41)
[2022-04-21] MEDS ORDERED: CALCIUM GLUCONATE 1,000 MG in D5W MINI-BAG PLUS 100 ML IV ONE (13:00)
[2022-04-21] MEDS: SODIUM BICARBONATE 150 MEQ in D5W 1,000 ML IV SCH (15:22)
[2022-04-21 18:39] LABS: CALCIUM LEVEL 6.1 MG/DL (8.8-10.2); CREATININE FOR GFR 6.58 MG/DL (0.70-1.30); GLOMERULAR FILTRATION RATE 8.9 (>42); MAGNESIUM LEVEL 2.4 MG/DL (1.8-2.4); POTASSIUM SERUM 3.5 MEQ/L (3.5-5.1)
[2022-04-21] MEDS: HEPARIN DRIP 25,000 UNITS in IV 1 EA IV SCH (19:09)
[2022-04-21 23:50] LABS: CREATININE FOR GFR 6.46 MG/DL (0.70-1.30); GLOMERULAR FILTRATION RATE 9.1 (>42); POTASSIUM SERUM 3.2 MEQ/L (3.5-5.1)
[2022-04-22] VITALS (74 sets, daily range): BP systolic 86–125; BP diastolic 48–65
[2022-04-22] MEDS: IPRATROPIUM 0.5MG/ALBUTEROL 2.5MG INH SOL UD 3ML (DUONEB) NEB SCH ×4 (01:22→20:09)
[2022-04-22] MEDS: PHENYLEPHRINE HCL INJ 50 MG in D5W 495 ML IV SCH (03:00)
[2022-04-22] MEDS: LevoFLOXacin IV 500 MG in IV 1 EA IV SCH (05:08)
[2022-04-22] MEDS: HYDROCORTISONE 100 MG/2 ML VIAL (J1720 PER 1) IV SCH ×4 (05:08→21:09)
[2022-04-22] MEDS: MIDODRINE 5 MG TAB PO SCH ×3 (05:08→21:09)
[2022-04-22 05:47] LABS: BASO # 0.1 10^3/uL (0.0-0.2); BASO % 0.5 % (0.0-1.0); HEMATOCRIT 29.9 % (42.0-52.0); HEMOGLOBIN 10.4 g/dl (13.5-17.5); LYMPH # 0.3 10^3/uL (1.5-5.0); LYMPH % 3.6 % (24.0-44.0); MEAN CORPUSCULAR HEMOGLOBIN 30.7 pg (27.0-33.0); MEAN CORPUSCULAR HGB CONC 34.8 g/dl (32.0-36.5); MEAN CORPUSCULAR VOLUME 88.2 fl (80.0-96.0); MONO # 1.2 10^3/uL (0.0-0.8); MONO % 12.6 % (2.0-8.0); NEUTROPHILS # 7.4 10^3/uL (1.5-8.5); NEUTROPHILS % 81.8 % (36.0-66.0); PLATELET COUNT, AUTOMATED 172 10^3/uL (150-450); RED BLOOD COUNT 3.39 10^6/uL (4.30-6.10); WHITE BLOOD COUNT 9.1 10^3/uL (4.0-10.0)
[2022-04-22] MEDS ORDERED: LevoFLOXacin 250 MG TABLET PO SCH (06:00)
[2022-04-22] MEDS: KCL 20MEQ IN 100ML SWI (KRUN) 20 MEQ in IV 1 EA IV SCH ×10 (08:19→23:36)
[2022-04-22] MEDS: INSULIN LISPRO (NovoLOG) PER UNIT SC SCH ×4 (08:20→21:00)
[2022-04-22] MEDS: NS 1,000 ML, NS 1,000 ML IV SCH ×2 (11:35→17:21)
[2022-04-22] MEDS: APIXABAN 5 MG TAB (ELIQUIS) PO SCH ×2 (13:30→21:09)
[2022-04-22] MEDS: SODIUM BICARBONATE 150 MEQ in D5W 1,000 ML IV SCH (13:31)
[2022-04-22 13:35] LABS: CREATININE FOR GFR 6.07 MG/DL (0.70-1.30); GLOMERULAR FILTRATION RATE 9.8 (>42); POTASSIUM SERUM 3.5 MEQ/L (3.5-5.1)
[2022-04-22 21:40] LABS: CALCIUM LEVEL 6.1 MG/DL (8.8-10.2); CREATININE FOR GFR 5.53 MG/DL (0.70-1.30); GLOMERULAR FILTRATION RATE 10.9 (>42)
[2022-04-23] VITALS (15 sets, daily range): BP systolic 104–142; BP diastolic 50–78
[2022-04-23] MEDS: KCL 20MEQ IN 100ML SWI (KRUN) 20 MEQ in IV 1 EA IV SCH ×2 (00:39)
[2022-04-23] MEDS: IPRATROPIUM 0.5MG/ALBUTEROL 2.5MG INH SOL UD 3ML (DUONEB) NEB SCH ×3 (02:00→13:28)
[2022-04-23] MEDS: NS 1,000 ML, NS 1,000 ML IV SCH ×2 (02:12→09:03)
[2022-04-23] MEDS: HYDROCORTISONE 100 MG/2 ML VIAL (J1720 PER 1) IV SCH ×2 (03:42→09:03)
[2022-04-23] MEDS: MIDODRINE 5 MG TAB PO SCH (05:04)
[2022-04-23 05:12] LABS: BASO % 0.5 % (0.0-1.0); HEMATOCRIT 28.6 % (42.0-52.0); HEMOGLOBIN 9.8 g/dl (13.5-17.5); LYMPH # 0.2 10^3/uL (1.5-5.0); LYMPH % 3.3 % (24.0-44.0); MEAN CORPUSCULAR HEMOGLOBIN 30.5 pg (27.0-33.0); MEAN CORPUSCULAR HGB CONC 34.3 g/dl (32.0-36.5); MEAN CORPUSCULAR VOLUME 89.1 fl (80.0-96.0); MONO # 0.8 10^3/uL (0.0-0.8); MONO % 12.2 % (2.0-8.0); NEUTROPHILS # 5.4 10^3/uL (1.5-8.5); NEUTROPHILS % 81.3 % (36.0-66.0); PLATELET COUNT, AUTOMATED 133 10^3/uL (150-450); RED BLOOD COUNT 3.21 10^6/uL (4.30-6.10); WHITE BLOOD COUNT 6.7 10^3/uL (4.0-10.0)
[2022-04-23 05:59] LABS: CALCIUM LEVEL 5.8 MG/DL (8.8-10.2); CREATININE FOR GFR 4.96 MG/DL (0.70-1.30); GLOMERULAR FILTRATION RATE 12.3 (>42); MAGNESIUM LEVEL 2.6 MG/DL (1.8-2.4); POTASSIUM SERUM 3.2 MEQ/L (3.5-5.1)
[2022-04-23] MEDS ORDERED: CALCIUM CARBONATE 500 MG CHEW U/D PO ONE (06:05)
[2022-04-23] MEDS ORDERED: POTASSIUM CHLORIDE 10MEQ SR TABLET PO ONE ×2 (06:05→17:00)
[2022-04-23] MEDS: TIOTROPIUM INHALER/CAPSULE (SPIRIVA) INH SCH (08:00)
[2022-04-23] MEDS: INSULIN LISPRO (NovoLOG) PER UNIT SC SCH ×4 (08:02→20:26)
[2022-04-23] MEDS: APIXABAN 5 MG TAB (ELIQUIS) PO SCH ×2 (08:02→20:18)
[2022-04-23 08:44] LABS: ALBUMIN 2.3 GM/DL (3.2-5.2); BILIRUBIN,DIRECT 0.2 MG/DL (0.0-0.2); BILIRUBIN,TOTAL 0.4 MG/DL (0.2-1.0); TOTAL PROTEIN 5.5 GM/DL (6.4-8.2)
[2022-04-23] MEDS ORDERED: NEOSPORIN OINT 0.9 GM PKT TOP ONE (10:00)
[2022-04-23] MEDS: atenoloL 25 MG TAB PO SCH ×2 (11:07→20:21)
[2022-04-23] MEDS: LEVOTHYROXINE 137MCG TABLET (0.137MG) PO SCH (11:19)
[2022-04-23] MEDS ORDERED: MIDODRINE 5 MG TAB PO PRN (13:00)
[2022-04-23] MEDS: LR 1,000 ML IV SCH ×2 (13:51→20:18)
[2022-04-23] MEDS ORDERED: LEVALBUTEROL HFA 45MCG/ACT 15 GM INHALER INH PRN (15:10)
[2022-04-23 16:32] LABS: CALCIUM LEVEL 6.4 MG/DL (8.8-10.2); CREATININE FOR GFR 4.27 MG/DL (0.70-1.30); GLOMERULAR FILTRATION RATE 14.6 (>42); POTASSIUM SERUM 3.1 MEQ/L (3.5-5.1)
[2022-04-23] MEDS: LEVALBUTEROL 1.25 MG/0.5 ML CONCENTRATE NEB INH SCH (19:23)
[2022-04-23] MEDS ORDERED: HEPARIN SOD (PORCINE) 5000UNITS/ML 1ML VIAL/SYRINGE IV PRN (20:00)
[2022-04-23] MEDS ORDERED: HEPARIN DRIP 25,000 UNITS in IV 1 EA IV SCH (20:00)
[2022-04-24] VITALS (13 sets, daily range): BP systolic 99–146; BP diastolic 54–80
[2022-04-24] MEDS ORDERED: diphenhydrAMINE 25MG CAP PO ONE (01:00)
[2022-04-24] MEDS: LEVALBUTEROL 1.25 MG/0.5 ML CONCENTRATE NEB INH SCH ×4 (02:20→19:56)
[2022-04-24] MEDS: LR 1,000 ML IV SCH (03:38)
[2022-04-24 05:03] LABS: BASO # 0.1 10^3/uL (0.0-0.2); BASO % 0.6 % (0.0-1.0); HEMATOCRIT 35.3 % (42.0-52.0); HEMOGLOBIN 11.7 g/dl (13.5-17.5); LYMPH # 0.4 10^3/uL (1.5-5.0); LYMPH % 3.3 % (24.0-44.0); MEAN CORPUSCULAR HEMOGLOBIN 31.3 pg (27.0-33.0); MEAN CORPUSCULAR HGB CONC 33.1 g/dl (32.0-36.5); MEAN CORPUSCULAR VOLUME 94.4 fl (80.0-96.0); MONO # 0.9 10^3/uL (0.0-0.8); NEUTROPHILS % 85.6 % (36.0-66.0); PLATELET COUNT, AUTOMATED 161 10^3/uL (150-450); RED BLOOD COUNT 3.74 10^6/uL (4.30-6.10); WHITE BLOOD COUNT 12.9 10^3/uL (4.0-10.0)
[2022-04-24] MEDS: LevoFLOXacin IV 500 MG in IV 1 EA IV SCH (05:05)
[2022-04-24] MEDS: LEVOTHYROXINE 137MCG TABLET (0.137MG) PO SCH (05:05)
[2022-04-24 05:47] LABS: MAGNESIUM LEVEL 2.3 MG/DL (1.8-2.4); PHOSPHORUS LEVEL 1.8 MG/DL (2.5-4.9)
[2022-04-24 06:34] LABS: ABG BASE EXCESS -5.7 (-2.0-2.0); ABG HCO3 19.4 MEQ/L (22.0-26.0); ABG O2 SATURATION 98.3 % (95.0-99.0); ABG PARTIAL PRESSURE CO2 36.9 mmHg (35.0-45.0); ABG PARTIAL PRESSURE O2 142.4 mmHg (75.0-100.0); ABG STANDARD HCO3 19.8 MEQ/L (22.0-26.0); ABG TOTAL CO2 20.5 MEQ/L (23.0-31.0); ABG pH (ARTERIAL) 7.339 UNITS (7.350-7.450)
[2022-04-24] MEDS: TIOTROPIUM INHALER/CAPSULE (SPIRIVA) INH SCH (07:13)
[2022-04-24 07:15] LABS: CALCIUM LEVEL 6.5 MG/DL (8.8-10.2); CREATININE FOR GFR 3.76 MG/DL (0.70-1.30); POTASSIUM SERUM 3.8 MEQ/L (3.5-5.1)
[2022-04-24] MEDS ORDERED: LORazepam 2 MG TAB PO ONE (08:10)
[2022-04-24] MEDS: APIXABAN 5 MG TAB (ELIQUIS) PO SCH ×2 (08:33→21:35)
[2022-04-24] MEDS: atenoloL 25 MG TAB PO SCH ×2 (08:34→21:35)
[2022-04-24] MEDS: INSULIN LISPRO (NovoLOG) PER UNIT SC SCH ×4 (08:37→21:00)
[2022-04-24] MEDS: FOLIC ACID 1 MG TAB PO SCH (09:00)
[2022-04-24] MEDS ORDERED: POTASSIUM CHLORIDE 10MEQ SR TABLET PO SCH (09:00)
[2022-04-24] MEDS: THIAMINE 100 MG TAB PO SCH ×2 (09:00→21:35)
[2022-04-24] MEDS: MULTIVITAMINS/MINERALS THERAP 1 TAB PO SCH (09:00)
[2022-04-24] MEDS ORDERED: FUROSEMIDE 40MG/4ML VIAL (J1940) IV ONE (09:35)
[2022-04-24] MEDS: cefTRIAXone SOD 1 GM in D5W MINI-BAG PLUS 50 ML IV SCH (10:08)
[2022-04-24] MEDS ORDERED: LORazepam 2 MG/ML VIAL IV PRN (10:35)
[2022-04-24] MEDS ORDERED: LORazepam 2 MG/ML VIAL As Ordered ONE (10:35)
[2022-04-24] MEDS ORDERED: LEVALBUTEROL 1.25 MG/0.5 ML CONCENTRATE NEB NEB ONE (10:45)
[2022-04-24] MEDS ORDERED: methylPREDNISolone 125MG 2ML VIAL IV ONE (10:45)
[2022-04-24 11:23] LABS: HEMATOCRIT 33.4 % (42.0-52.0); MEAN CORPUSCULAR HEMOGLOBIN 31.2 pg (27.0-33.0); MEAN CORPUSCULAR HGB CONC 32.9 g/dl (32.0-36.5); MEAN CORPUSCULAR VOLUME 94.6 fl (80.0-96.0); PLATELET COUNT, AUTOMATED 163 10^3/uL (150-450); RED BLOOD COUNT 3.53 10^6/uL (4.30-6.10); WHITE BLOOD COUNT 15.5 10^3/uL (4.0-10.0)
[2022-04-25] VITALS (12 sets, daily range): BP systolic 128–182; BP diastolic 65–81; O2SAT 94–96
[2022-04-25] MEDS: LEVALBUTEROL 1.25 MG/0.5 ML CONCENTRATE NEB INH SCH ×4 (01:07→19:36)
[2022-04-25] MEDS: LEVOTHYROXINE 137MCG TABLET (0.137MG) PO SCH (05:25)
[2022-04-25 06:52] LABS: BASO % 0.3 % (0.0-1.0); HEMATOCRIT 31.6 % (42.0-52.0); HEMOGLOBIN 10.6 g/dl (13.5-17.5); LYMPH # 0.2 10^3/uL (1.5-5.0); LYMPH % 1.8 % (24.0-44.0); MEAN CORPUSCULAR HEMOGLOBIN 31.4 pg (27.0-33.0); MEAN CORPUSCULAR HGB CONC 33.5 g/dl (32.0-36.5); MEAN CORPUSCULAR VOLUME 93.5 fl (80.0-96.0); MONO # 0.3 10^3/uL (0.0-0.8); MONO % 2.5 % (2.0-8.0); NEUTROPHILS % 91.3 % (36.0-66.0); PLATELET COUNT, AUTOMATED 146 10^3/uL (150-450); RED BLOOD COUNT 3.38 10^6/uL (4.30-6.10); WHITE BLOOD COUNT 13.1 10^3/uL (4.0-10.0)
[2022-04-25 06:56] LABS: CALCIUM LEVEL 6.9 MG/DL (8.8-10.2); CREATININE FOR GFR 3.95 MG/DL (0.70-1.30); POTASSIUM SERUM 3.7 MEQ/L (3.5-5.1)
[2022-04-25 06:57] LABS: ALBUMIN 2.3 GM/DL (3.2-5.2); CALCIUM LEVEL 6.9 MG/DL (8.8-10.2); CREATININE FOR GFR 4.04 MG/DL (0.70-1.30); GLOMERULAR FILTRATION RATE 15.6 (>42); PHOSPHORUS LEVEL 3.7 MG/DL (2.5-4.9); POTASSIUM SERUM 4.2 MEQ/L (3.5-5.1)
[2022-04-25] MEDS: TIOTROPIUM INHALER/CAPSULE (SPIRIVA) INH SCH (07:36)
[2022-04-25] MEDS: INSULIN LISPRO (NovoLOG) PER UNIT SC SCH ×4 (08:24→20:42)
[2022-04-25] MEDS: FOLIC ACID 1 MG TAB PO SCH (08:24)
[2022-04-25] MEDS: THIAMINE 100 MG TAB PO SCH ×2 (08:24→20:42)
[2022-04-25] MEDS: APIXABAN 5 MG TAB (ELIQUIS) PO SCH ×2 (08:24→20:42)
[2022-04-25] MEDS: MULTIVITAMINS/MINERALS THERAP 1 TAB PO SCH (08:24)
[2022-04-25] MEDS: atenoloL 25 MG TAB PO SCH ×2 (08:31→20:42)
[2022-04-25] MEDS ORDERED: atenoloL 25 MG TAB PO ONE (09:30)
[2022-04-25] MEDS: cefTRIAXone SOD 1 GM in D5W MINI-BAG PLUS 50 ML IV SCH (09:53)
[2022-04-25] MEDS: RAMELTEON 8 MG TAB (ROZEREM) PO SCH (20:41)
[2022-04-25] MEDS: QUEtiapine FUMARATE 25 MG TAB PO SCH (20:42)
[2022-04-25] MEDS ORDERED: atenoloL 50 MG TAB PO SCH (21:00)
[2022-04-26] VITALS (9 sets, daily range): BP systolic 132–170; BP diastolic 61–80; O2SAT 92–96
[2022-04-26] MEDS: LEVALBUTEROL 1.25 MG/0.5 ML CONCENTRATE NEB INH SCH ×4 (02:00→19:34)
[2022-04-26] MEDS: LEVOTHYROXINE 137MCG TABLET (0.137MG) PO SCH (06:43)
[2022-04-26 07:37] LABS: BASO # 0.1 10^3/uL (0.0-0.2); BASO % 0.6 % (0.0-1.0); EOS % 0.1 % (0.0-3.0); HEMATOCRIT 31.2 % (42.0-52.0); HEMOGLOBIN 10.3 g/dl (13.5-17.5); LYMPH # 0.5 10^3/uL (1.5-5.0); LYMPH % 3.6 % (24.0-44.0); MEAN CORPUSCULAR HEMOGLOBIN 31.1 pg (27.0-33.0); MEAN CORPUSCULAR VOLUME 94.3 fl (80.0-96.0); MONO % 6.6 % (2.0-8.0); NEUTROPHILS % 83.5 % (36.0-66.0); PLATELET COUNT, AUTOMATED 166 10^3/uL (150-450); RED BLOOD COUNT 3.31 10^6/uL (4.30-6.10); WHITE BLOOD COUNT 14.4 10^3/uL (4.0-10.0)
[2022-04-26 08:05] LABS: ALBUMIN 2.3 GM/DL (3.2-5.2); CALCIUM LEVEL 7.2 MG/DL (8.8-10.2); CREATININE FOR GFR 3.21 MG/DL (0.70-1.30); GLOMERULAR FILTRATION RATE 20.4 (>42); PHOSPHORUS LEVEL 3.7 MG/DL (2.5-4.9); POTASSIUM SERUM 3.7 MEQ/L (3.5-5.1)
[2022-04-26] MEDS: TIOTROPIUM INHALER/CAPSULE (SPIRIVA) INH SCH (08:09)
[2022-04-26] MEDS: THIAMINE 100 MG TAB PO SCH ×2 (08:58→20:13)
[2022-04-26] MEDS: MULTIVITAMINS/MINERALS THERAP 1 TAB PO SCH (08:58)
[2022-04-26] MEDS: APIXABAN 5 MG TAB (ELIQUIS) PO SCH ×2 (08:59→20:13)
[2022-04-26] MEDS: FOLIC ACID 1 MG TAB PO SCH (08:59)
[2022-04-26] MEDS: atenoloL 25 MG TAB PO SCH (09:00)
[2022-04-26] MEDS: cefTRIAXone SOD 1 GM in D5W MINI-BAG PLUS 50 ML IV SCH (09:01)
[2022-04-26] MEDS: INSULIN LISPRO (NovoLOG) PER UNIT SC SCH ×4 (09:33→20:13)
[2022-04-26] MEDS ORDERED: FUROSEMIDE 40MG/4ML VIAL (J1940) IV ONE (11:30)
[2022-04-26] MEDS: FUROSEMIDE 40 MG TAB PO SCH (17:43)
[2022-04-26] MEDS: QUEtiapine FUMARATE 25 MG TAB PO SCH (20:08)
[2022-04-26] MEDS: RAMELTEON 8 MG TAB (ROZEREM) PO SCH (20:08)
[2022-04-26] MEDS: atenoloL 50 MG TAB PO SCH (20:13)
[2022-04-27] VITALS (7 sets, daily range): BP systolic 140–157; BP diastolic 63–87; O2SAT 92–94
[2022-04-27] MEDS: LEVALBUTEROL 1.25 MG/0.5 ML CONCENTRATE NEB INH SCH ×4 (02:00→19:45)
[2022-04-27] MEDS: LEVOTHYROXINE 137MCG TABLET (0.137MG) PO SCH (05:51)
[2022-04-27] MEDS: TIOTROPIUM INHALER/CAPSULE (SPIRIVA) INH SCH (08:00)
[2022-04-27] MEDS: FUROSEMIDE 40 MG TAB PO SCH (08:04)
[2022-04-27] MEDS: APIXABAN 5 MG TAB (ELIQUIS) PO SCH ×2 (08:04→20:35)
[2022-04-27] MEDS: MULTIVITAMINS/MINERALS THERAP 1 TAB PO SCH (08:04)
[2022-04-27] MEDS: FOLIC ACID 1 MG TAB PO SCH (08:05)
[2022-04-27 08:16] LABS: HEMATOCRIT 37.2 % (42.0-52.0); HEMOGLOBIN 12.1 g/dl (13.5-17.5); MEAN CORPUSCULAR HEMOGLOBIN 30.5 pg (27.0-33.0); MEAN CORPUSCULAR HGB CONC 32.5 g/dl (32.0-36.5); MEAN CORPUSCULAR VOLUME 93.7 fl (80.0-96.0); PLATELET COUNT, AUTOMATED 217 10^3/uL (150-450); RED BLOOD COUNT 3.97 10^6/uL (4.30-6.10); WHITE BLOOD COUNT 17.1 10^3/uL (4.0-10.0)
[2022-04-27 08:39] LABS: CALCIUM LEVEL 8.2 MG/DL (8.8-10.2); CREATININE FOR GFR 2.44 MG/DL (0.70-1.30); GLOMERULAR FILTRATION RATE 27.9 (>42); POTASSIUM SERUM 3.9 MEQ/L (3.5-5.1)
[2022-04-27] MEDS: cefTRIAXone SOD 1 GM in D5W MINI-BAG PLUS 50 ML IV SCH (09:18)
[2022-04-27] MEDS: INSULIN LISPRO (NovoLOG) PER UNIT SC SCH ×4 (09:18→20:29)
[2022-04-27] MEDS: atenoloL 50 MG TAB PO SCH ×2 (09:19→20:35)
[2022-04-27] MEDS ORDERED: POTASSIUM CHLORIDE 10MEQ SR TABLET PO ONE (11:00)
[2022-04-27] MEDS: RAMELTEON 8 MG TAB (ROZEREM) PO SCH (20:34)
[2022-04-27] MEDS: QUEtiapine FUMARATE 25 MG TAB PO SCH (20:35)
[2022-04-28] VITALS: BP 125/80
[2022-04-28] MEDS: LEVALBUTEROL 1.25 MG/0.5 ML CONCENTRATE NEB INH SCH ×4 (01:21→20:00)
[2022-04-28 04:00] VITALS: BP 150/86
[2022-04-28] MEDS: LEVOTHYROXINE 137MCG TABLET (0.137MG) PO SCH (05:40)
[2022-04-28] MEDS: TIOTROPIUM INHALER/CAPSULE (SPIRIVA) INH SCH (07:13)
[2022-04-28 07:41] LABS: HEMOGLOBIN 11.2 g/dl (13.5-17.5); MEAN CORPUSCULAR HEMOGLOBIN 31.3 pg (27.0-33.0); MEAN CORPUSCULAR HGB CONC 32.9 g/dl (32.0-36.5); PLATELET COUNT, AUTOMATED 178 10^3/uL (150-450); RED BLOOD COUNT 3.58 10^6/uL (4.30-6.10); WHITE BLOOD COUNT 15.9 10^3/uL (4.0-10.0)
[2022-04-28 08:06] LABS: BLOOD UREA NITROGEN 52 MG/DL (7-18); CALCIUM LEVEL 8.1 MG/DL (8.8-10.2); CARBON DIOXIDE LEVEL 33 MEQ/L (21-32); CHLORIDE LEVEL 112 MEQ/L (98-107); CREATININE FOR GFR 1.84 MG/DL (0.70-1.30); GLOMERULAR FILTRATION RATE 38.7 (>42); GLUCOSE, FASTING 175 MG/DL (70-100); POTASSIUM SERUM 3.4 MEQ/L (3.5-5.1); SODIUM LEVEL 143 MEQ/L (136-145)
[2022-04-28 08:09] VITALS: BP 137/62
[2022-04-28] MEDS: APIXABAN 5 MG TAB (ELIQUIS) PO SCH ×2 (08:12→21:02)
[2022-04-28] MEDS: MULTIVITAMINS/MINERALS THERAP 1 TAB PO SCH (08:12)
[2022-04-28] MEDS: FOLIC ACID 1 MG TAB PO SCH (08:12)
[2022-04-28] MEDS: atenoloL 50 MG TAB PO SCH ×2 (08:13→21:02)
[2022-04-28] MEDS: INSULIN LISPRO (NovoLOG) PER UNIT SC SCH ×4 (08:16→21:00)
[2022-04-28] MEDS: cefTRIAXone SOD 1 GM in D5W MINI-BAG PLUS 50 ML IV SCH (10:35)
[2022-04-28] MEDS ORDERED: POTASSIUM CHLORIDE 10MEQ SR TABLET PO ONE (11:00)
[2022-04-28 12:00] VITALS: BP 146/67
[2022-04-28 16:00] VITALS: BP 134/64
[2022-04-28] MEDS: FUROSEMIDE 40 MG TAB PO SCH (17:02)
[2022-04-28 20:00] VITALS: BP 139/66
[2022-04-28] MEDS: RAMELTEON 8 MG TAB (ROZEREM) PO SCH (21:02)
[2022-04-28] MEDS: QUEtiapine FUMARATE 25 MG TAB PO SCH (21:02)
[2022-04-29] VITALS (8 sets, daily range): BP systolic 128–143; BP diastolic 63–73; O2SAT 96
[2022-04-29] MEDS: LEVALBUTEROL 1.25 MG/0.5 ML CONCENTRATE NEB INH SCH ×3 (02:00→13:13)
[2022-04-29 06:02] LABS: HEMATOCRIT 32.3 % (42.0-52.0); HEMOGLOBIN 10.6 g/dl (13.5-17.5); MEAN CORPUSCULAR HEMOGLOBIN 31.1 pg (27.0-33.0); MEAN CORPUSCULAR HGB CONC 32.8 g/dl (32.0-36.5); MEAN CORPUSCULAR VOLUME 94.7 fl (80.0-96.0); PLATELET COUNT, AUTOMATED 144 10^3/uL (150-450); RED BLOOD COUNT 3.41 10^6/uL (4.30-6.10); WHITE BLOOD COUNT 12.6 10^3/uL (4.0-10.0)
[2022-04-29] MEDS: LEVOTHYROXINE 137MCG TABLET (0.137MG) PO SCH (06:08)
[2022-04-29 06:19] LABS: CALCIUM LEVEL 8.6 MG/DL (8.8-10.2); CREATININE FOR GFR 1.41 MG/DL (0.70-1.30); GLOMERULAR FILTRATION RATE 52.6 (>42); POTASSIUM SERUM 3.8 MEQ/L (3.5-5.1)
[2022-04-29] MEDS: INSULIN LISPRO (NovoLOG) PER UNIT SC SCH (07:30)
[2022-04-29] MEDS: TIOTROPIUM INHALER/CAPSULE (SPIRIVA) INH SCH (07:55)
[2022-04-29] MEDS: cefTRIAXone SOD 1 GM in D5W MINI-BAG PLUS 50 ML IV SCH (09:18)
[2022-04-29] MEDS: APIXABAN 5 MG TAB (ELIQUIS) PO SCH (09:18)
[2022-04-29] MEDS: atenoloL 50 MG TAB PO SCH (09:18)
[2022-04-29] MEDS: MULTIVITAMINS/MINERALS THERAP 1 TAB PO SCH (09:18)
[2022-04-29] MEDS: FUROSEMIDE 40 MG TAB PO SCH (09:19)
[2022-04-29] MEDS: FOLIC ACID 1 MG TAB PO SCH (09:19)
[2022-04-29] MEDS ORDERED: AMOX875T2 PO (12:43)
== END 2022-04-29 14:46 | disposition home health service (06) | DRG 871 ==
LOC: M ED 06:25 → M ED INP 08:39 → ENRESERV 09:18 → M ICU 10:08 → M PCU 04-25 18:26
PROVIDERS: ADMIT Internal Medicine; ATTEND Internal Medicine
PROC: B246ZZZ Ultrasonography of Right and Left Heart (ICD-10-PCS; principal; 2022-04-20)
PROC: 02HV33Z Insertion of Infusion Device into Superior Vena Cava, Percutaneous Approach (ICD-10-PCS; 2022-04-20)
DX: A41.50 Gram-negative sepsis, unspecified (principal); R57.1 Hypovolemic shock; R65.21 Severe sepsis with septic shock; I50.33 Acute on chronic diastolic (congestive) heart failure; J96.10 Chronic respiratory failure, unspecified whether with hypoxia or hypercapnia; N17.9 Acute kidney failure, unspecified; E87.2 Acidosis; I13.0 Hypertensive heart and chronic kidney disease with heart failure and stage 1 through stage 4 chronic kidney disease, or unspecified chronic kidney disease; A02.0 Salmonella enteritis; F10.239 Alcohol dependence with withdrawal, unspecified; K92.2 Gastrointestinal hemorrhage, unspecified; E87.1 Hypo-osmolality and hyponatremia; I95.9 Hypotension, unspecified; Z99.81 Dependence on supplemental oxygen; E11.22 Type 2 diabetes mellitus with diabetic chronic kidney disease; E86.0 Dehydration; Z66 Do not resuscitate; N18.30 Chronic kidney disease, stage 3 unspecified; Z20.822 Contact with and (suspected) exposure to COVID-19; Z79.82 Long term (current) use of aspirin; Z79.84 Long term (current) use of oral hypoglycemic drugs; Z79.01 Long term (current) use of anticoagulants; Z79.899 Other long term (current) drug therapy; I48.0 Paroxysmal atrial fibrillation; E03.9 Hypothyroidism, unspecified; I25.10 Atherosclerotic heart disease of native coronary artery without angina pectoris; I27.21 Secondary pulmonary arterial hypertension; R19.7 Diarrhea, unspecified; B96.20 Unspecified Escherichia coli [E. coli] as the cause of diseases classified elsewhere; B96.1 Klebsiella pneumoniae [K. pneumoniae] as the cause of diseases classified elsewhere; E87.6 Hypokalemia; I45.4 Nonspecific intraventricular block; G47.00 Insomnia, unspecified

== ENCOUNTER → 2022-05-09 | Outpatient (CLI) | payer MEDICARE, OTHER ==
[~2022-05-09] MED LIST changes: +AMOX875T2 PO; +ASPI81TA26 PO; +EZET10TA21 PO; +FERR1TAB8 PO; +FLUT1BLS4 INH; +OMEG10002 PO; +VITA100093 PO
[2022-05-09 18:22] LABS: BASO % 0.5 % (0.0-1.0); EOS # 0.1 10^3/uL (0.0-0.5); EOS % 0.8 % (0.0-3.0); HEMATOCRIT 29.3 % (42.0-52.0); HEMOGLOBIN 9.3 g/dl (13.5-17.5); LYMPH # 1.4 10^3/uL (1.5-5.0); MEAN CORPUSCULAR HEMOGLOBIN 30.6 pg (27.0-33.0); MEAN CORPUSCULAR HGB CONC 31.7 g/dl (32.0-36.5); MEAN CORPUSCULAR VOLUME 96.4 fl (80.0-96.0); MONO # 0.8 10^3/uL (0.0-0.8); MONO % 9.7 % (2.0-8.0); NEUTROPHILS # 5.4 10^3/uL (1.5-8.5); NEUTROPHILS % 70.4 % (36.0-66.0); PLATELET COUNT, AUTOMATED 309 10^3/uL (150-450); RED BLOOD COUNT 3.04 10^6/uL (4.30-6.10); WHITE BLOOD COUNT 7.7 10^3/uL (4.0-10.0)
[2022-05-09 19:12] LABS: ALBUMIN 2.6 GM/DL (3.2-5.2); BILIRUBIN,TOTAL 0.8 MG/DL (0.2-1.0); CALCIUM LEVEL 8.8 MG/DL (8.8-10.2); CREATININE FOR GFR 1.89 MG/DL (0.70-1.30); GLOMERULAR FILTRATION RATE 37.5 (>42); POTASSIUM SERUM 4.8 MEQ/L (3.5-5.1); TOTAL PROTEIN 6.1 GM/DL (6.4-8.2)
== END ==
LOC: M ADAMS 13:55
PROVIDERS: ATTEND Nurse Practitioner Family
DX: R94.4 Abnormal results of kidney function studies (principal); D64.9 Anemia, unspecified

== ENCOUNTER → 2022-05-20 | Outpatient (REF) | payer OTHER, MEDICARE | LOC: M LABDRWAD 12:43 → M LAB REF 12:43 | PROVIDERS: ATTEND Nurse Practitioner Family | DX: D64.9 Anemia, unspecified (principal) ==

== ENCOUNTER → 2022-05-22 | Outpatient (CLI) | payer OTHER, MEDICARE ==
[2022-05-22 12:44] LABS: BASO % 0.3 % (0.0-1.0); EOS # 0.1 10^3/uL (0.0-0.5); EOS % 0.8 % (0.0-3.0); HEMATOCRIT 30.8 % (42.0-52.0); HEMOGLOBIN 9.5 g/dl (13.5-17.5); LYMPH # 1.5 10^3/uL (1.5-5.0); LYMPH % 15.3 % (24.0-44.0); MEAN CORPUSCULAR HEMOGLOBIN 29.1 pg (27.0-33.0); MEAN CORPUSCULAR HGB CONC 30.8 g/dl (32.0-36.5); MEAN CORPUSCULAR VOLUME 94.5 fl (80.0-96.0); MONO # 1.1 10^3/uL (0.0-0.8); MONO % 11.7 % (2.0-8.0); NEUTROPHILS # 6.8 10^3/uL (1.5-8.5); NEUTROPHILS % 71.3 % (36.0-66.0); PLATELET COUNT, AUTOMATED 281 10^3/uL (150-450); RED BLOOD COUNT 3.26 10^6/uL (4.30-6.10); WHITE BLOOD COUNT 9.5 10^3/uL (4.0-10.0)
[2022-05-22 15:06] LABS: PERCENT SATURATION 22.6 % (19.7-50.0)
== END ==
LOC: M ADAMS 08:49
PROVIDERS: ATTEND Nurse Practitioner Family
DX: D64.9 Anemia, unspecified (principal)

== ENCOUNTER → 2022-05-29 | Outpatient (CLI) | payer MEDICARE, OTHER ==
[2022-05-29 14:02] LABS: ALBUMIN 2.7 GM/DL (3.2-5.2); CALCIUM LEVEL 9.3 MG/DL (8.8-10.2); CREATININE FOR GFR 1.53 MG/DL (0.70-1.30); GLOMERULAR FILTRATION RATE 47.9 (>42); PHOSPHORUS LEVEL 3.5 MG/DL (2.5-4.9); POTASSIUM SERUM 4.2 MEQ/L (3.5-5.1)
== END ==
LOC: M ADAMS 10:38
PROVIDERS: ATTEND Internal Medicine Nephrology
DX: N18.31 Chronic kidney disease, stage 3a (principal)

== ENCOUNTER → 2022-06-26 | Outpatient (CLI) | payer MEDICARE, OTHER ==
[2022-06-26 14:28] LABS: FREE T4 1.18 NG/DL (0.76-1.46); THYROID STIMULATING HORMONE 0.959 uIU/ML (0.358-3.740)
== END ==
LOC: M ADAMS 10:57
PROVIDERS: ATTEND Nurse Practitioner Family
DX: E11.65 Type 2 diabetes mellitus with hyperglycemia (principal); E03.8 Other specified hypothyroidism

== ENCOUNTER → 2022-07-30 | Outpatient (CLI) | payer MEDICARE, OTHER | LOC: M RAD 07:29 | PROVIDERS: ATTEND Internal Medicine Pulmonary Disease | DX: R91.8 Other nonspecific abnormal finding of lung field (principal) ==

== ENCOUNTER → 2022-09-02 | Outpatient (CLI) | payer MEDICARE, OTHER | LOC: M PLARAD 12:42 | PROVIDERS: ATTEND Internal Medicine Pulmonary Disease | DX: R91.8 Other nonspecific abnormal finding of lung field (principal); J90 Pleural effusion, not elsewhere classified | CPT/HCPCS: 78815; A9552 ==

== ENCOUNTER → 2022-10-24 | Outpatient (CLI) | payer MEDICARE, OTHER | LOC: M PLAIMG 14:09 | PROVIDERS: ATTEND Internal Medicine Pulmonary Disease | DX: R91.8 Other nonspecific abnormal finding of lung field (principal) ==

== ENCOUNTER → 2022-12-19 | Outpatient (REF) | payer MEDICARE, OTHER ==
[2022-12-19 14:50] LABS: HEMOGLOBIN A1c 4.9 % (4.0-6.0)
[2022-12-19 15:03] LABS: CREATININE, URINE 84.4 MG/DL
[2022-12-19 15:04] LABS: MAU/CREAT RATIO 3.5 MCG/MG (0.0-30.0)
[2022-12-19 15:06] LABS: ALBUMIN 3.6 G/DL (3.2-5.2); BILIRUBIN,TOTAL 1.1 MG/DL (0.3-1.2); CALCIUM LEVEL 9.5 MG/DL (8.3-10.6); CHOLESTEROL RISK RATIO 5.26 (<5); CREATININE FOR GFR 1.72 MG/DL (0.70-1.30); GLOMERULAR FILTRATION RATE 41.7 (>42); LDL CHOLESTEROL 66.8 MG/DL (<100); POTASSIUM SERUM 4.7 MMOL/L (3.5-5.1); TOTAL PROTEIN 6.6 G/DL (5.7-8.2)
[2022-12-19 15:08] LABS: TOTAL 25(OH) VITAMIN D 29.2 NG/ML (20.0-100.0)
== END ==
LOC: M LABDRWAD 13:10
PROVIDERS: ATTEND Nurse Practitioner Family
DX: E11.65 Type 2 diabetes mellitus with hyperglycemia (principal); E78.2 Mixed hyperlipidemia; E55.9 Vitamin D deficiency, unspecified

== ENCOUNTER → 2023-05-19 | Outpatient (CLI) | payer MEDICARE, OTHER | LOC: M RAD 08:34 | PROVIDERS: ATTEND Internal Medicine Pulmonary Disease | DX: R91.8 Other nonspecific abnormal finding of lung field (principal) ==

== ENCOUNTER → 2023-06-30 | Outpatient (REF) | payer MEDICARE, OTHER ==
[2023-06-30 13:52] LABS: HEMOGLOBIN A1c 6.4 % (4.0-6.0)
== END ==
LOC: M LABDRWAD 12:05
PROVIDERS: ATTEND Nurse Practitioner Family
DX: E11.65 Type 2 diabetes mellitus with hyperglycemia (principal)

== ENCOUNTER → 2023-09-08 | Outpatient (REF) | payer MEDICARE, OTHER | LOC: M LABDRWAD 13:13 | PROVIDERS: ATTEND Physician Assistant | DX: I48.92 Unspecified atrial flutter (principal) ==

== ENCOUNTER → 2023-09-08 | Outpatient (REF) | payer MEDICARE, OTHER ==
[2023-09-08 14:57] LABS: BASO % 0.5 % (0.0-1.0); EOS # 0.1 10^3/uL (0.0-0.5); EOS % 1.1 % (0.0-3.0); HEMOGLOBIN 12.6 g/dl (13.5-17.5); HEMOGLOBIN A1c 6.4 % (4.0-6.0); LYMPH % 13.8 % (24.0-44.0); MEAN CORPUSCULAR HEMOGLOBIN 32.6 pg (27.0-33.0); MEAN CORPUSCULAR HGB CONC 33.2 g/dl (32.0-36.5); MEAN CORPUSCULAR VOLUME 98.2 fl (80.0-96.0); MONO # 0.7 10^3/uL (0.0-0.8); MONO % 9.1 % (2.0-8.0); NEUTROPHILS # 5.7 10^3/uL (1.5-8.5); NEUTROPHILS % 75.1 % (36.0-66.0); PLATELET COUNT, AUTOMATED 179 10^3/uL (150-450); RED BLOOD COUNT 3.87 10^6/uL (4.30-6.10); WHITE BLOOD COUNT 7.6 10^3/uL (4.0-10.0)
[2023-09-08 15:04] LABS: CREATININE, URINE 44.8 MG/DL; MAU/CREAT RATIO 15.6 MCG/MG (0.0-30.0)
[2023-09-08 15:07] LABS: ALBUMIN 3.5 G/DL (3.2-5.2); BILIRUBIN,TOTAL 1.1 MG/DL (0.3-1.2); CALCIUM LEVEL 9.4 MG/DL (8.3-10.6); CHOLESTEROL RISK RATIO 5.07 (<5); CREATININE FOR GFR 1.91 MG/DL (0.70-1.30); GLOMERULAR FILTRATION RATE 36.9 (>42); HDL CHOLESTEROL 31.9 MG/DL (>40); LDL CHOLESTEROL 58.1 MG/DL (<100); NON-HDL-C 130.1 MG/DL; POTASSIUM SERUM 4.3 MMOL/L (3.5-5.1); THYROID STIMULATING HORMONE 1.005 uIU/ML (0.55-4.78); TOTAL PROTEIN 6.4 G/DL (5.7-8.2)
[2023-09-08 15:08] LABS: FREE T4 1.21 NG/DL (0.89-1.76); TOTAL 25(OH) VITAMIN D 39.9 NG/ML (20.0-100.0)
== END ==
LOC: M LABDRWAD 13:11
PROVIDERS: ATTEND Nurse Practitioner Family
DX: I10 Essential (primary) hypertension (principal); E11.65 Type 2 diabetes mellitus with hyperglycemia; E55.9 Vitamin D deficiency, unspecified; E03.8 Other specified hypothyroidism; I48.92 Unspecified atrial flutter

== ENCOUNTER → 2023-12-25 | Outpatient (CLI) | payer MEDICARE, OTHER | LOC: M RAD 07:28 | PROVIDERS: ATTEND Internal Medicine Pulmonary Disease | DX: R91.8 Other nonspecific abnormal finding of lung field (principal) ==

== ENCOUNTER → 2024-07-02 | Outpatient (REF) | payer MEDICARE, OTHER ==
[~2024-07-02] MED LIST changes: +GABA-1490 PO; -GABA600T4 PO
[2024-07-02 14:46] LABS: ALBUMIN 3.3 G/DL (3.2-5.2); CALCIUM LEVEL 9.6 MG/DL (8.3-10.6); CHOLESTEROL RISK RATIO 3.97 (<5); CREATININE FOR GFR 1.96 MG/DL (0.70-1.30); GLOMERULAR FILTRATION RATE 35.7 (>42); LDL CHOLESTEROL 71.2 MG/DL (<100); POTASSIUM SERUM 4.1 MMOL/L (3.5-5.1); TOTAL PROTEIN 6.7 G/DL (5.7-8.2)
[2024-07-02 15:05] LABS: HEMOGLOBIN A1c 5.9 % (4.0-6.0)
== END ==
LOC: M LABDRWAD 13:10
PROVIDERS: ATTEND Nurse Practitioner Family
DX: E11.65 Type 2 diabetes mellitus with hyperglycemia (principal); E78.2 Mixed hyperlipidemia

== ENCOUNTER → 2024-08-26 | Outpatient (REF) | payer MEDICARE, OTHER ==
[~2024-08-26] MED LIST changes: +GABA-1172; +GABA-1172 PO; -GABA-282; -GABA-282 PO
== END ==
LOC: M LABDRAWP 17:38
PROVIDERS: ATTEND Nurse Practitioner Acute Care
DX: I48.92 Unspecified atrial flutter (principal)

== ENCOUNTER → 2024-12-28 | Outpatient (REF) | payer MEDICARE, OTHER ==
[2024-12-28 18:22] LABS: FREE T4 1.28 NG/DL (0.89-1.76); THYROID STIMULATING HORMONE 4.482 uIU/ML (0.55-4.78)
[2024-12-28 18:32] LABS: CREATININE, URINE 31.5 MG/DL; MALB URINE SIEMENS < 3.0 MG/L
[2024-12-28 18:40] LABS: HEMOGLOBIN A1c 5.7 % (4.0-6.0)
== END ==
LOC: M LABDRWAD 17:08
PROVIDERS: ATTEND Nurse Practitioner Family
DX: E11.65 Type 2 diabetes mellitus with hyperglycemia (principal); E03.9 Hypothyroidism, unspecified

== ENCOUNTER → 2025-01-19 | Outpatient (CLI) | payer MEDICARE, OTHER | LOC: M PLAIMG 10:03 | PROVIDERS: ATTEND Internal Medicine Pulmonary Disease | DX: R91.8 Other nonspecific abnormal finding of lung field (principal) ==